=== PATIENT | female | born 1995 | race Caucasian/White ===

== ENCOUNTER 2020-11-08 16:56 | Emergency (ER) | payer OTHER, SELFPAY ==
[2020-11-08 17:15] VITALS: BP 142/83; PULSE 98; RESP 20; TEMP 37.2; O2SAT 100
--- NOTE | 2020-11-08 17:17 | ED.URI ---
HPI - URI/Sore Throat General Chief Complaint: Upper Respiratory Infection Stated Complaint: Possible Sinus Infection Time Seen by Provider: 11/08/20 17:17 Source: patient and RN notes reviewed History of Present Illness HPI Narrative: Patient is a 25-year-old female who presents the urgent care with complaints of a possible sinus infection. Patient states that for the last 3 days she has had some fullness in her bilateral ears and nasal/facial congestion. Patient states that she has been using her typical Claritin-D as well as another allergy medication without much relief. Patient denies of any known fevers, nausea, vomiting. Denies of any known exposure to strep Covid or influenza. States that she had a Covid test yesterday, which was negative. No other acute complaints. No acute distress noted. Patient aware of the plan of care. Some parts of this dictation were generated by voice recognition software and may contain typographical and/or grammatical inaccuracies. Related Data Home Medications Medication Instructions Recorded Confirmed fluticasone propion-salmeterol 1 inh INHALATION DAILY 11/08/20 11/08/20 [Advair Diskus] levothyroxine 137 mcg PO DAILY 11/08/20 11/08/20 montelukast 10 mg PO DAILY 11/08/20 11/08/20 norgestimate-ethinyl estradiol 1 tablet PO DAILY 11/08/20 11/08/20 [Tri Femynor] Allergies Allergy/AdvReac Type Severity Reaction Status Date / Time No Known Allergies Allergy Verified 11/08/20 17:27 Review of Systems Review of Systems: Narrative: CONSTITUTIONAL: Denies fever, chills, or sweats. EYES: Denies visual changes, redness, or discharge. ENT: Reports of nasal congestion, facial congestion, postnasal drainage and bilateral otalgia CARDIOVASCULAR: Denies chest pain, palpitations, or edema. RESPIRATORY: Denies cough or dyspnea. GASTROINTESTINAL: Denies abdominal pain, nausea, vomiting, or diarrhea. GENITOURINARY: Denies dysuria or hematuria. SKIN: Denies rash or itching. MUSCULOSKELETAL: Denies back pain, joint pain, or myalgia. NEUROLOGIC: Denies headache, numbness, or weakness. All other systems reviewed are negative, except as documented in HPI. PMFSH Comments At the time of my signature, I reviewed and agree with the nursing past medical, surgical, social, and family history. There is no relevant family history pertinent to the patient complaint. Exam Narrative: Exam Narrative: GENERAL: This is a well-nourished, well-developed patient, in no apparent distress. HEAD: normocephalic, atraumatic. Mild frontal sinus tenderness EYES: PERRL. Sclera clear/white. Vision is grossly intact. EARS: External ears normal, auditory canals clear and without drainage, TMs normal without perforation. Hearing grossly intact. NOSE: External nose normal with no obvious nasal discharge, mild bilateral erythemic nares with clear rhinorrhea THROAT: Mucous membranes moist, mild erythema noted posterior oropharynx with moderate postnasal drainage NECK: Neck supple, non-tender without lymphadenopathy CARDIOVASCULAR: Regular rate and rhythm without murmurs, gallops, or rubs. RESPIRATORY: Clear to auscultation. Breath sounds equal bilaterally. No wheezes, rales, or rhonchi. SKIN: warm, intact with no suspicious lesions or rash, good texture and turgor. NEURO: awake, alert, and oriented to person, place and time. There were no obvious focal neurologic abnormalities. EXTREMITIES: No clubbing, cyanosis, or edema. Course Vital Signs Vital signs: Vital Signs Temperature 99.0 F 11/08/20 17:15 Pulse Rate 98 11/08/20 17:15 Respiratory Rate 20 11/08/20 17:15 Blood Pressure 142/83 H 11/08/20 17:15 Pulse Oximetry 100 11/08/20 17:15 Temperature 99.0 F 11/08/20 17:15 Pulse Rate 98 11/08/20 17:15 Respiratory Rate 20 11/08/20 17:15 Blood Pressure 142/83 H 11/08/20 17:15 Pulse Oximetry 100 11/08/20 17:15 Reviewed-patient is informed that they may have pre-hypertension or hypertension based
== END 2020-11-08 17:30 | disposition home or self-care (01) ==
PROVIDERS: Emergency Provider Nurse Practitioner Family; PCP Family Medicine
DX: J32.9 Chronic sinusitis, unspecified (principal); J45.909 Unspecified asthma, uncomplicated; E06.3 Autoimmune thyroiditis; E03.9 Hypothyroidism, unspecified
CPT/HCPCS: 99213; G0463

== ENCOUNTER 2023-01-07 10:17 | Emergency (ER) | payer OTHER, SELFPAY ==
[2023-01-07 10:56] VITALS: BP 128/91; PULSE 91; RESP 16; TEMP 36.2; O2SAT 100
[2023-01-07 11:00] VITALS: BP 128/91; PULSE 91; RESP 16; TEMP 36.2; O2SAT 100
--- NOTE | 2023-01-07 11:31 | ED.FEMALEGU ---
HPI - Female Genitourinary General Chief complaint: Urogenital-Female Stated complaint: STD EXPOSURE Time Seen by Provider: 01/07/23 11:31 Source: patient, RN notes reviewed and old records reviewed Mode of arrival: ambulatory Limitations: no limitations History of Present Illness HPI Narrative: 27 year old female who presents to [facility] care with complaints of tenderness to perineal area and burning with urination for one week duration. Patient reports that she just got out of a 2 year relationship and found out he had been cheating on her and wants STD testing sent, patient denies any vaginal discharge or foul odor or any itching.Patient reports menses was 2 weeks ago. MD elicited complaint: dysuria Pertinent past history: other (concern for possible STD exposure) Onset (ago): week(s) (1) Location of symptoms: perineum Severity scale (1-10): 3 Quality of pain: burning Treatment prior to arrival: none Related Data Home Medications Medication Instructions Recorded Confirmed albuterol sulfate 90 mcg/actuation 2 puff inhalation Q4-6H PRN 11/08/20 01/07/23 aerosol inhaler Shortness Of Breath Or Wheezing fluticasone 100 mcg-salmeterol 50 1 inh inhalation BID 11/08/20 01/07/23 mcg/dose blistr powdr for inhalation (Advair Diskus) levothyroxine 137 mcg tablet 137 mcg PO DAILY 11/08/20 01/07/23 norgestimate-ethinyl estradiol 1 tablet PO DAILY 11/08/20 01/07/23 0.18 mg/0.215mg/0.25mg-35 mcg(28)tablet (Tri Femynor) fluticasone propionate 50 2 spray intranasal DAILY PRN 01/07/23 01/07/23 mcg/actuation nasal Congestion spray,suspension (Flonase Allergy Relief) metformin 500 mg tablet,extended 500 mg PO DAILY 01/07/23 01/07/23 release 24 hr phentermine 37.5 mg capsule 37.5 mg PO DAILY 01/07/23 01/07/23 Allergies Allergy/AdvReac Type Severity Reaction Status Date / Time No Known Allergies Allergy Verified 01/07/23 10:54 Review of Systems Review of Systems: CONSTITUTIONAL: Denies fever, chills, or sweats. CARDIOVASCULAR: Denies chest pain, palpitations, or edema. RESPIRATORY: Denies cough or dyspnea. GASTROINTESTINAL: Denies abdominal pain, nausea, vomiting, or diarrhea. GENITOURINARY: Reports dysuria, frequency, urgency. Denies flank pain or hematuria. SKIN: Denies rash or itching. MUSCULOSKELETAL: Denies back pain or myalgia. 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 There is no relevant family history pertinent to the presenting complaint Exam Narrative: GENERAL: Well-appearing, well-nourished, and in no acute distress. HEAD: Normocephalic, atraumatic. NECK: Supple. no lymphadenopathy CHEST: Clear to auscultation. No respiratory distress.SAO2 100% on room air HEART: Regular rate and rhythm. No murmur heard. Normal peripheral pulses. ABDOMEN: Soft, nontender, nondistended, normal active bowel sounds. No CVA tenderness, dysuria, tenderness perineum,denies any vaginal discharge EXTREMITIES: Normal range of motion. No edema. SKIN: Warm, dry, no rash. NEURO: No focal deficits. Alert and oriented x3. Course Course Emergency Course: Patient is aware of diagnosis, understands and agrees to
== END 2023-01-07 11:53 | disposition home or self-care (01) ==
PROVIDERS: Emergency Provider Registered Nurse
DX: R30.0 Dysuria (principal); Z11.3 Encounter for screening for infections with a predominantly sexual mode of transmission; J45.909 Unspecified asthma, uncomplicated; E03.9 Hypothyroidism, unspecified; E06.3 Autoimmune thyroiditis; E28.2 Polycystic ovarian syndrome
CPT/HCPCS: 81003; 87491; 87591; 87661; 99214; G0463

== ENCOUNTER 2024-03-08 14:33 | Emergency (ER) | payer OTHER, SELFPAY ==
[2024-03-08 14:40] VITALS: BP 114/86; PULSE 103; RESP 16; TEMP 36.8; O2SAT 96
--- NOTE | 2024-03-08 15:01 | ED.FEMALEGU ---
HPI - Female Genitourinary General Chief complaint: Urogenital-Female Stated complaint: poss std exposure Source: patient and RN notes reviewed Mode of arrival: ambulatory Limitations: no limitations History of Present Illness HPI Narrative: 29 y/o female presented for concern for possible STD exposure. States she was informed 2 days ago her last partner had been with multiple partners. Denies known STD. Denies any symptoms. Denies concern for , LMP 2 weeks ago. Related Data Home Medications Medication Instructions Recorded Confirmed albuterol sulfate 90 mcg/actuation 2 puff inhalation Q4-6H PRN 11/08/20 01/07/23 aerosol inhaler Shortness Of Breath Or Wheezing fluticasone 100 mcg-salmeterol 50 1 inh inhalation BID 11/08/20 01/07/23 mcg/dose blistr powdr for inhalation (Advair Diskus) levothyroxine 137 mcg tablet 137 mcg PO DAILY 11/08/20 01/07/23 norgestimate-ethinyl estradiol 1 tablet PO DAILY 11/08/20 01/07/23 0.18 mg/0.215mg/0.25mg-35 mcg(28)tablet (Tri Femynor) fluticasone propionate 50 2 spray intranasal DAILY PRN 01/07/23 01/07/23 mcg/actuation nasal Congestion spray,suspension (Flonase Allergy Relief) metformin 500 mg tablet,extended 500 mg PO DAILY 01/07/23 01/07/23 release 24 hr phentermine 37.5 mg capsule 37.5 mg PO DAILY 01/07/23 01/07/23 tirzepatide (weight loss) 5 mg/0.5 mg subcut 03/08/24 mL subcutaneous pen injector (Zepbound) Allergies Allergy/AdvReac Type Severity Reaction Status Date / Time No Known Allergies Allergy Verified 01/07/23 10:54 Review of Systems Review of Systems: CONSTITUTIONAL: Denies body aches, fever, chills, or sweats. CARDIOVASCULAR: Denies chest pain, palpitations, or edema. RESPIRATORY: Denies cough or dyspnea. GASTROINTESTINAL: Denies abdominal pain, nausea, vomiting, or diarrhea. GENITOURINARY: denies vaginal discharge, dysuria, frequency, urgency, hematuria, flank pain SKIN: Denies rash, itching, or wounds. MUSCULOSKELETAL: Denies back pain or myalgia. 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 Please see nursing chart for further information. There is no relevant family history pertinent to the presenting complaint Exam Narrative: GENERAL: Well-appearing ENT: Mucous membranes pink and moist. CHEST: No respiratory distress. Clear to auscultation. HEART: Regular rate and rhythm. ABDOMEN: Soft, nontender, nondistended, normal active bowel sounds. No CVA tenderness : normal vaginal introitus, pink without bleeding, laceration or lesions. Moderate thick white discharge. No swelling. Nontender. normal appearance of the cervix, closed Chaperoned by Anuja BRAMBILA SKIN: Warm, dry, no rash. NEURO: No focal deficits. Alert and oriented x3. Gait steady. PSYCH: Normal affect. Course Course Emergency Course: Patient is aware of diagnosis, understands and agrees to treatment plan. Anticipatory guidance given. Patient agrees to follow-up as directed and is aware of reasons to seek care at the emergency department. Portions of this record may have been created with voice recognition software Level of Care: Express Care Visit Vital Signs Vital signs: Vital Signs Temperature 98.2 F 03/08
[2024-03-08 15:34] LABS: BEDSIDEPREGUCG Negative (Negative)
[2024-03-08 17:29] LABS: Trichomonas Vag PCR NOT DETECTED (NOT DETECTE)
[2024-03-08 17:54] LABS: Chlamydia trachomatis NOT DETECTED (NOT DETECTE); Neisseria gonorrhoeae PCR NOT DETECTED (NOT DETECTE)
[2024-03-11 14:53] LABS: Bacterial Vaginosis POSITIVE (NEGATIVE)
== END 2024-03-08 15:32 | disposition home or self-care (01) ==
PROVIDERS: Emergency Provider Nurse Practitioner Family
DX: Z20.822 Contact with and (suspected) exposure to COVID-19 (principal); J45.909 Unspecified asthma, uncomplicated; E06.3 Autoimmune thyroiditis; E28.2 Polycystic ovarian syndrome
CPT/HCPCS: 81025; 81513; 87070; 87491; 87591; 87661; 99213; G0463

== ENCOUNTER 2024-08-19 10:02 | Emergency (ER) | payer OTHER, SELFPAY ==
[2024-08-19 10:07] VITALS: BP 122/85; PULSE 118; RESP 18; TEMP 36.7; O2SAT 100
--- OUTSIDE RECORDS SUMMARY | 2024-08-19 11:24 | XMS_ITS | Encounter Summary ---
Author Organization [facility] Address [address] [place] [address] Phone Care Team Providers Care Lead Electrical Engineer Name Role Phone Provider, None Primary Care Provider Unavailabl e Reason for Visit * Reason Comments Medication Refill Encounter Details Date Type Department Care Team (Late st Contact Info) Description 02/07/[address] [facility] - [facility] [address] [place] [address] Bro Jaime MD [address] [place] [address] Medication Refill Social History Tobacco Use Types Packs/Day Years Used Date Smoking Tobacco: Never Smokeless Tobacco: Never Alcohol Use Standard Drinks/Week Comments Not Currently 0 (1 standard drink = 0.6 oz pur e alcohol) AUDIT-C Answer Date Recorded Frequency of Alcohol Consumption Never 07/30/2018 Average Number of Drinks Not on file 019 Frequency of Binge Drinking Not on file 08/2018 PHQ-2 Answer Date Recorded PHQ-2 Score 0 2019 Sexually Active Control Partners Comments Not Currently Comments No Sex and Gender Information Value Date Recorded Sex Assigned at Not on file Legal Sex Female 2:20 PM CDT Gender Identity Not on file Sexual Orientation Not on file Occupation Industry Job Start Date Job End Date [employer] [place] Not on file Not on mateo e Not on file documented as of this encounter Plan of Treatment Not on file documented as of this encounter Visit Diagnoses Diagnosis Non morbid obesity due to excess calories documented in this encounter Additional Health Concerns Assessment Noted Time PHQ-9 Depression Total Score: 0 12/21/19 19 2:50 PM CDT documented as of this encounter Care Teams Lead Electrical Engineer Relationship Specialty Start Date End Date Provider, None [place] PCP - General 12/10/20 documented as of this encounter
--- OUTSIDE RECORDS SUMMARY | 2024-08-19 11:24 | XMS_ITS | Encounter Summary ---
Author Organization [facility] Address [address] [place] [address] Phone Care Team Providers Care Assistant Department Manager Name Role Phone Provider, None Primary Care Provider Unavailabl e Reason for Visit * Reason Comments Medication Refill Encounter Details Date Type Department Care Team (Late st Contact Info) Description 06/21/2021 Refill [facility] - [facility] [address] [place] [address] Bro Jaime MD [address] [place] [address] Medication Refill Social History Tobacco Use Types [...] Job Start Date Job End Date [employer] [place] Not on file Not on mateo e Not on file documented as of this encounter Plan of Treatment Not on file documented as of this encounter Visit Diagnoses Diagnosis Mild persistent asthma without complication Unspecified asthma documented in this encounter Additional Health Concerns Assessment Noted Time PHQ-9 Depression Total Score: 0 12/21/19 19 2:50 PM CDT documented as of this encounter Care Teams Assistant Department Manager Relationship Specialty Start Date End Date Provider, None [place] PCP - General 12/10/20 documented as of this encounter
--- OUTSIDE RECORDS SUMMARY | 2024-08-19 11:24 | XMS_ITS | Encounter Summary ---
Author Organization [facility] Address [address] [facility] [place] [address] Phone Care Team Providers Care In Flight Refueling Craftsman Name Role Phone Bro Jaime MD Primary Care Provider [phone] Provider, None Primary Care Provider Unavailabl e Reason for Visit * Reason Comments Medication Refill Encounter Details Date Type Department Care Team (Late st Contact Info) Description 04/02/2020 Refill [facility] [address] [place] [address] Bro Jaime MD [address] [place] [address] Medication Refill Social History Tobacco Use Types [...] Industry Job Start Date Job End Date [employer] [place] Not on file Not on mateo e Not on file documented as of this encounter Miscellaneous Notes * Telephone Encounter - Bro Jaime MD - 04/03/2020 4:45 PM CST I would love to dismiss her. NICS TEST TECHNICIAN * Telephone Encounter - Tyesha Richards RN - 04/03/2020 7:22 AM CST Patient has had 6 no shows just this year. Do you want to dismiss? NICS TEST TECHNICIAN * Telephone Encounter - Bro Jaime MD - 04/02/2020 6:31 PM CST Needs appointment before refills. Has no showed her last one. I said I want to see her in 3 months and she did not show up. She does this a lot and I m Not dealing with her. NICS TEST TECHNICIAN * Telephone Encounter - Jacque Shaw RN - 04/02/2020 4:24 PM CST Medication failed the protocol, provider to review and approve the medication order if appropriate. Last OV 12/06/19, F/U None, Earliest fill date 04/02/20 Jacque BRAMBILA Requested Prescriptions Pending Prescriptions Disp Refills Phentermine HCl 37.5 MG Capsule [Pharmacy Med Name: PHENTERMINE 37.5 MG CAPSULE] 30 Cap 2 Sig: TAKE ONE CAPSULE EVERY MORNING BEFORE BREAKFAST Not Delegated - Gastroenterology: Antiobesity Agents Failed - 04/02/2020 12:35 PM Failed - This refill cannot be delegated Passed - Valid encounter within last 6 months Past Office Visits Recent Outpatient Visits 3 months ago Mass of forearm, left [facility] - Family [facility] Bro Jamison MD 11 months ago Bilateral temporomandibular joint pain [facility] Medical [facility] - Family [facility] - Bro Jamison MD 1 year ago Mass of forearm, left [facility] - Bro Jamison MD 1 year ago Well woman exam (no gynecological exam) [facility] - Bro Jamison MD Upcoming Appointments COMMODITY SUPERVISOR - Recent and Past Visits Recent Visits Date Type Provider Dept 12/06/19 Office Visit Bro Jaime MD [facility] 04/17/19 Office Visit Bro Jaime MD [facility] Showing recent visits within past 460 days with a meds authorizing provider and meeting all other requirements Future Appointments No visits were found meeting these conditions. Showing future appointments within next 90 days with a meds authorizing provider and meeting all other requirements Passed - Last BP in normal range BP Readings from Last 1 Encounters: 12/06/19 124/80 NICS TEST TECHNICIAN documented in this encounter Plan of Treatment Not on file documented as of this encounter Visit Diagnoses Diagnosis Non morbid obesity due to excess calories documented in this encounter Additional Health Concerns Assessment Noted Time PHQ-9 Depression Total Score: 0 12/21/19 19 2:50 PM CDT documented as of this encounter Care Teams In Flight Refueling Craftsman Relationship Specialty Start Date End Date Bro Jaime MD PCP - General Family Medicine 07/30/18 09/21/20 Provider, None [place] PCP - General 12/10/20 documented as of this encounter
--- OUTSIDE RECORDS SUMMARY | 2024-08-19 11:24 | XMS_ITS | Clinical Summary ---
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 Do not swallow. 60 each 1 5 Active metFORMIN XR (GLUCOPHAGE XR) 500 mg 24 hr tabletIndications: PCOS (polycystic ovarian syndrome) Take 1 tablet (500 mg total) by mouth 2 (two) times a day after breakfast and dinner 180 tablet 3 5 07/08/19 26 Active tirzepatide, weight loss, (Zepbound) 7.5 mg/0.5 mL pen injectorIndication s:Weight Loss Management for Obese Patient (BMI >= 30) Inject 0.5 mL (7.5 mg total) under the skin every 7 days 2 mL 5 5 Active phentermine 37.5 mg capsuleIndications :Class 1 obesity due to excess calories with serious comorbidity and body mass index (BMI) of 34.0 to 34.9 in adult,Class 3 severe obesity due to excess calories with serious comorbidity and body mass index (BMI) of 40.0 to 44.9 in adult (HCC) Take 1 capsule (37.5 mg total) by mouth every morning 90 capsule 1 5 Active Active Problems Problem Noted Date Diagnosed Date Class 3 severe obesity due t o excess calories with serious comorbidity and body mass index (BMI) of 40.0 to 44.9 in adult 12/06/2023 Assessment & Plan (12/06/2023 2:19 PM CDT): Chronic, significant worsening Counseled on healthy lifestyle habits Advised to work on stress management Continue oral phentermine and add Zepbound 2.5 mg SQ weekly for 4 weeks than increase to 5 mg SQ weekly ( discussed about mechanism of action, side effects and benefits ) Obstruction of esophagus due to food impaction 0 01/29/2021 Overview (01/29/2021): Added automatically from request for surgery [id number] PCOS (polycystic ovarian syndrome) 01/08/2019 Assessment & Plan (12/06/2023 2:18 PM CDT): Counseled on diet and exercise Recommend to work on healthy weight loss Recommend to start taking oral metformin 1 tablet oral twice a day with meals Continue control pills Assessment & Plan (07/22/2022 10:49 AM REFUGE WORKER): Counseled on diet and exercise Recommend to work on healthy weight loss Continue oral metformin Advise to bet back on control pills, joaquin when pt using weight loss medications which are absolutely contraindicated with Assessment & Plan (12/07/2021 1:04 PM CDT): Counseled on diet and exercise Recommend to work on healthy weight loss Continue oral metformin Continue control pills Assessment & Plan (06/17/2021 5:07 PM REFUGE WORKER): Patient with symptomatic PCOS, with irregular periods, hirsutism, acne and obesity Patient has been off BCP Plan: The disease was reviewed with patient Patient to get back on BCP and follow up with OBgyn Patient to prevent and use protection till we get her thyroid under control Patient to work on weight loss with diet and exercise. Check labs this week and consider adding Metformin especially if Testosterone is high. Patient understands and agrees with above plan. Assessment & Plan (01/08/2019 11:29 AM CDT): Irregular menses - on OCP Female baldness hirsutism Obesity Acne High total testosterone levels Most likely pt has PCOS - strongly advised to workon healthy portion controlled diet, avoid processed foods and sugar from diet - increase physical activity, consider cross training - refer to see bilingual nanny - refer to see DELICATESSEN STORE MANAGER - discuss local measures for Hirsutism - like laser treatment , threading and waxing , avoid shaving Mass of forearm, left 01/06/2019 Well woman exam (no gynecological exam) 07/31/19 Female pattern hair loss 07/30/2018 Primary insomnia 07/30/2018 Asthma, mild persistent 07/30/2018 Encounter for surveillance of contraceptive pill s 03/16/2018 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 Assessment & Plan (12/06/2023 2:17 PM CDT): Chronic, unknown status Patient currently on levothyroxine 137 mcg oral daily Recheck thyroid function test today and further plans based on it Assessment & Plan (12/07/2021 1:08 PM CDT): Continue current dose of levothyroxine therapy Recheck thyroid function test and further plans based on it Reviewed thyroid function tests, within normal limits Continue current dose Assessment & Plan (01/08/2019 11:25 AM CDT): Advised to continue taking Levothyroxine 137 mcg oral daily - recheck TSH today - further dose adjustments based on labs from today Instructions for taking levothyroxine Brand name is preferred Take thyroid pill all by itself Take thyroid pill one hour before food or 2 to 3 hours after food Heat, humidity, and direct sunlight will cause a loss of potency Never store thyroid pill in the bathroom The medication should be taken daily. If one or more pills are missing in a week, they can be taken all together at once, making sure at the end of the week, 7 tabs have been taken. Assessment & Plan (03/16/2018 10:12 AM CDT): Advised to continue taking Levothyroxine 137 mcg oral daily - recheck TSH today - further dose adjustments based on labs from today Instructions for taking levothyroxine Brand name is preferred Take thyroid pill all by itself Take thyroid pill one hour before food or 2 to 3 hours after food Heat, humidity, and direct sunlight will cause a loss of potency Never store thyroid pill in the bathroom The medication should be taken daily. If one or more pills are missing in a week, they can be taken all together at once, making sure at the end of the week, 7 tabs have been taken. Assessment & Plan (04/04/2017 2:26 PM REFUGE WORKER): Advised to continue taking Levothyroxine 137 mcg oral daily - recheck TSH today - performed thyroid U/s on clinic today , as pt. C/o increased in neck size - no significant changes in thyroid gland sizes when compared to 11/2016 - pt. TSH from today - TSH is 3.74, WNL Advised to continue current levothyroxine dose - follow up in 6 months Instructions for taking levothyroxine Brand name is preferred Take thyroid pill all by itself Take thyroid pill one hour before food or 2 to 3 hours after food Heat, humidity, and direct sunlight will cause a loss of potency Never store thyroid pill in the bathroom The medication should be taken daily. If one or more pills are missing in a week, they can be taken all together at once, making sure at the end of the week, 7 tabs have been taken. 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 If one or more pills are missing in a week, they can be taken all together at once, making sure at the end of the week, 7 tabs have been taken. Assessment & Plan (07/22/2022 10:49 AM REFUGE WORKER): Continue current dose of levothyroxine therapy Recheck thyroid function test and further plans based on it Assessment & Plan (06/17/2021 5:04 PM REFUGE WORKER): Patient has been off Levothyroxine for > 4 weeks due to insurance problems. No recent thyroid labs. Patient has thyromegaly, but no nodules on Ultrasound in 2017. Plan: Restart same dose of Levothyroxine 137 mcg/day The proper way of taking Levothyroxine reviewed with patient. Check TSH this week and also in 2 month. Acquired hypothyroidism 12/23/2016 Assessment & Plan (12/23/2016 11:19 AM CDT): - Thyroid Ultrasound performed in office today - showed changes of summer thyroiditis in both lobes - labs today - TSH, TPO ab - will call with test results - continue same dose of Levothyroxine 137 mcg oral daily Instructions for taking levothyroxine Brand name is preferred Take thyroid pill all by itself Take thyroid pill one hour before food or 2 to 3 hours after food Heat, humidity, and direct sunlight will cause a loss of potency Never store thyroid pill in the bathroom The medication should be taken daily. If one or more pills are missing in a week, they can be taken all together at once, making sure at the end of the week, 7 tabs have been taken. Mild intermittent asthma without complication Assessment & Plan (07/22/2022 10:51 AM REFUGE WORKER): Refilled advair Advise to establish PCP Class 1 obesity due to exces s calories with serious comorbidity and body mass index (BMI) of 34.0 to 34.9 in adult 12/23/2016 Assessment & Plan (07/22/2022 10:51 AM REFUGE WORKER): Chronic, slowly improving but still above goal BMI 36.4 Counseled on diet and exercise Patient doing intermittent fasting Advised to include HIIT Exercises - patient on oral phentermine - add topiramate - advised to look over the side effects on the medications and advised to notify if patient not tolerating Also advised patient that these medications are strict contraindication for and she has to get back on her control pills - follow up in 3 months Assessment & Plan (12/07/2021 1:04 PM CDT): Chronic, worsening Discussed about healthy lifestyle habits advise to work on healthy diet, avoid processed foods , increase vegetables and protein and cut back on carb portions and also avoid fruit juices and regular soda and desserts Increase physical activity , recommend at least 150 min of aerobic activity per week and include resistance training 2 x weekly Start phentermine therapy Assessment & Plan (01/08/2019 11:30 AM CDT): Chronic, worsening - strongly advised to workon healthy portion controlled diet, avoid processed foods and sugar from diet - increase physical activity, consider cross training - start Phentermine 37.5 mg oral daily - bilingual nanny referral - follow up in 3 months Assessment & Plan (03/16/2018 10:12 AM CDT): Obesity is improving with lifestyle modifications. Discussed the patient's BMI. The BMI is above average; BMI management plan is completed. General weight loss/lifestyle modification strategies discussed (elicit support from others; identify saboteurs; non-food rewards, etc). Behavioral treatment: stress management. Diet interventions: moderate (500 kCal/d) deficit diet. Informal exercise measures discussed, e.g. taking stairs instead of elevator. Regular aerobic exercise program discussed. Assessment & Plan (04/04/2017 2:28 PM REFUGE WORKER): Obesity is worsening. Discussed the patient's BMI. The BMI is above average; BMI management plan is completed. General weight loss/lifestyle modification strategies discussed (elicit support from others; identify saboteurs; non-food rewards, etc). Behavioral treatment: stress management. Diet interventions: moderate (500 kCal/d) deficit diet. Informal exercise measures discussed, e.g. taking stairs instead of elevator. Regular aerobic exercise program discussed. - advise to see bilingual nanny soon - bilingual nanny referral done - advise to do food diary for 2 weeks before seeing bilingual nanny - advise to exercise 6 days of week and increase intensity of the exercise - advise to avoid binge eating - advise to include resistance training - follow up in 6 months Assessment & Plan (12/23/2016 11:17 AM CDT): Obesity is newly identified. Discussed the patient's BMI. The BMI is above average; BMI management plan is completed. General weight loss/lifestyle modification strategies discussed (elicit support from others; identify saboteurs; non-food rewards, etc). Behavioral treatment: stress management. Diet interventions: moderate (500 kCal/d) deficit diet. Informal exercise measures discussed, e.g. taking stairs instead of elevator. Regular aerobic exercise program discussed. 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 (Primary Dx) 07/08/2024 10:43 AM REFUGE WORKER - 07/08/2024 11:59 PM REFUGE WORKER Hospital Encounter [address] [address] 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 Discharge Disposition: Discharge to home or self care 07/08/2024 10:15 AM REFUGE WORKER Office Visit [facility] Diabetes and Endocrinology [address] [place] [phone] Seth Gar MD Class 1 obesity due to excess calories with serious comorbidity and body mass index (BMI) of 34.0 to 34.9 in adult (Primary Dx); PCOS (polycystic ovarian syndrome); 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; Class 3 severe obesity due to excess calories with serious comorbidity and body mass index (BMI) of 40.0 to 44.9 in adult (HCC) 06/05/2024 Telephone [facility] [id number] [place] [address] [address] [address] Seth Gar MD from Last 3 Months Surgical History Surgery Date Site/Laterality Comments NOSE SURGERY Medical History Medical History Date Comments Thyroid disease Asthma Summer's disease PCOS (polycystic ovarian syndrome) Family History Medical History Relation Name Comments Thyroid cancer Mother Relation Name Status Comments Mother Social History Tobacco Use Types Packs/Day Years Used Date Smoking Tobacco: Never Smokeless Tobacco: Never Tobacco Cessation:Counseling Given: Not Answered Alcohol Use Standard Drinks/Week Comments Yes 0 (1 standard drink = 0.6 oz pur e alcohol) PHQ-2 Answer Date Recorded PHQ-2 Total Score (If total score is 3 or more points, staff should administer the PHQ-9) 0 12/06/2023 Personal Safety Answer Date Recorded Have you ever been in or are you currently in a harmful physical or emotional relationship or is someone making you feel afraid or unsafe? Denies 04/02/2023 Comments No Sex and Gender Information Value Date Recorded Sex Assigned at Not on file Legal Sex Female 12:36 PM CDT Gender Identity Not on file Sexual Orientation Not on file Obstetrics History Last Filed Vital Signs Vital Sign Reading Time Taken Comments Blood Pressure 122/70 07/08/2024 10:24 AM REFUGE WORKER Pulse 96 07/08/2024 10:24 AM REFUGE WORKER Temperature 37.2 C (99 F) 04/02/2023 11:34 AM REFUGE WORKER Respiratory Rate 15 07/08/2024 10:24 AM REFUGE WORKER Oxygen Saturation 100% 04/02/2023 1:51 PM REFUGE WORKER Inhaled Oxygen Concentration - - Weight 97.1 kg (214 lb) 07/08/2024 10:24 AM REFUGE WORKER Height 167.6 cm (5' 6 ) 07/08/2024 10:24 AM REFUGE WORKER Body Mass Index 34.54 07/08/2024 10:24 AM REFUGE WORKER Plan of Treatment Health Maintenance Due Date Last Done Comments Cervical Cancer Screening 1995 Hepatitis C Screening 1995 Varicella Vaccines (1 of 2 - 13+ 2-dose series) 01/28/2008 Hepatitis B Screening 2013 Regular Well Visit/Exam 18-64 2013 Pneumococcal vaccine <65 (1 of 2 - PCV) 2014 DTaP/Tdap/Td Vaccine (2 - Td or Tdap) 01/03/2024 01/02/2014 Influenza Vaccine (#1) 2024 05/08/2020, 2010 Depression Screening 12/05/2024 12/06/2023, 07/22/2022, 01/08/2019, Additional history exists HPV Vaccines Completed 05/12/2012, 11/26, 03/28/2011 Procedures Procedure Name Priority Date/Time Associated Diagnosis Comments THYROID FUNCTION CASCADE Routine 07/08/2024 10:43 AM REFUGE WORKER 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 from Last 3 Months Results * Thyroid Function [place] (07/08/2024 10:43 AM REFUGE WORKER) TSH 0.46 0.30 - 4.20 mcIUnit/mL Blood 07/08/2024 10:4 3 AM REFUGE WORKER 07/08/2024 7:39 PM REFUGE WORKER Seth Godoy MD LAB BLOOD ORDERABLE S Final Result [facility] [id number] [address] Department [place] [address] from Last 3 Months [facility] Advance Directives For more information, please contact: [phone] * Full Code (Latest Code Status on File) Date Activated Date Inactivated Comments 01/29/2021 10:05 AM 01/29/2021 3:41 PM Care Teams Engraver Picture Relationship Specialty Start Date End Date No, Physician PCP - General 04/02/23
--- OUTSIDE RECORDS SUMMARY | 2024-08-19 11:24 | XMS_ITS | Encounter Summary ---
Author Organization [facility] Address [address] [facility] [place] [address] Phone Care Team Providers Care Explosives Operator Name Role Phone Bro Jaime MD Primary Care Provider [phone] Provider, None Primary Care Provider Unavailabl e Reason for Visit * Reason Comments Medication Refill Encounter Details Date Type Department Care Team (Late st Contact Info) Description 03/07/2020 Refill [facility] - Family Medicine [facility] [address] [place] [address] Bro Jaime MD [address] [place] [address] Medication Refill Social History Tobacco Use Types [...] Industry Job Start Date Job End Date [employer] [facility] [place] Not on file Not on mateo e Not on file documented as of this encounter Miscellaneous Notes * Telephone Encounter - Darlene Bush RN - 03/09/2020 12:36 PM CDT [place]: 12-06-2019 Next OV: none documented in this encounter Plan of Treatment Not on file documented as of this encounter Visit Diagnoses Not on filedocumented in this encounter Additional Health Concerns Assessment Noted Time PHQ-9 Depression Total Score: 0 12/21/19 19 2:50 PM CDT documented as of this encounter Care Teams Explosives Operator Relationship Specialty Start Date End Date Bro Jaime MD PCP - General Family Medicine 07/30/18 09/21/20 Provider, None [place] PCP - General 12/10/20 documented as of this encounter
--- OUTSIDE RECORDS SUMMARY | 2024-08-19 11:24 | XMS_ITS | Encounter Summary ---
Author Organization [facility] Address [address] [facility] [place] [address] Phone Care Team Providers Care Educational Therapist Name Role Phone Bro Jaime MD Primary Care Provider [phone] Provider, None Primary Care Provider Unavailabl e Reason for Visit * Reason Comments Medication Refill Encounter Details Date Type Department Care Team (Late st Contact Info) Description 09/13/2020 Refill [facility] [address] [place] [address] Bro Jaime MD [address] [place] [address] Medication Refill Social History Tobacco Use Types [...] Job Start Date Job End Date [employer] [place] Not on file Not on mateo e Not on file COVID-19 Exposure Response Date Recorded In the last month, have you been in contact with someone who was confirmed or suspected to have Coronavirus / COVID-19? No / Unsure 09/15/2020 8:38 AM CDT documented as of this encounter Miscellaneous Notes * Telephone Encounter - Elena Thomas RN - 09/16/2020 11:38 AM CDT Patient has appointment with you tomorrow, 09/17/20. * Telephone Encounter - Della Botello - 09/16/2020 10:36 AM CDT Patient has an appointment with Dr. Jaime on 09/17/2020. * Telephone Encounter - Tyesha Richards RN - 09/14/2020 2:38 PM CDT Needs appt documented in this encounter Plan of Treatment Not on file documented as of this encounter Visit Diagnoses Diagnosis Non morbid obesity due to excess calories documented in this encounter Additional Health Concerns Assessment Noted Time PHQ-9 Depression Total Score: 0 12/21/19 2:50 PM CDT documented as of this encounter Care Teams Educational Therapist Relationship Specialty Start Date End Date Bro Jaime MD PCP - General Family Medicine 07/30/18 09/21/20 Provider, None [place] PCP - General 12/10/20 documented as of this encounter
--- OUTSIDE RECORDS SUMMARY | 2024-08-19 11:24 | XMS_ITS | Encounter Summary ---
Author Organization [facility] Address [address] [place] [address] Phone Care Team Providers Care Luggage Repairer Name Role Phone Provider, None Primary Care Provider Unavailabl e Reason for Visit * Reason Comments Medication Refill Encounter Details Date Type Department Care Team (Late st Contact Info) Description 04/15/2022 Refill [facility] - Family Medicine [facility] [address] [place] [address] Bro Jaime MD [address] [place] [address] Medication Refill Social History Tobacco Use Types [...] Job Start Date Job End Date [employer] in [place] Not on file Not on mateo e Not on file documented as of this encounter Plan of Treatment Not on file documented as of this encounter Visit Diagnoses Diagnosis Mild persistent asthma without complication Unspecified asthma documented in this encounter Additional Health Concerns Assessment Noted Time PHQ-9 Depression Total Score: 0 12/21/19 19 2:50 PM CDT documented as of this encounter Care Teams Luggage Repairer Relationship Specialty Start Date End Date Provider, None [place] PCP - General 12/10/20 documented as of this encounter
--- OUTSIDE RECORDS SUMMARY | 2024-08-19 11:24 | XMS_ITS | Referral Summary ---
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 Discharge Disposition: Discharge to home or self care 07/08/2024 10:45 AM GAUNTLET PAIRER Lab [facility] Outpatient Lab at [address] [phone] 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 (Primary Dx) 07/08/2024 10:15 AM GAUNTLET PAIRER Office Visit [facility] Diabetes and Endocrinology [address] [place] [phone] Seth Gar MD Class 1 obesity due to excess calories with serious comorbidity and body mass index (BMI) of 34.0 to 34.9 in adult (Primary Dx); PCOS (polycystic ovarian syndrome); 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; Class 3 severe obesity due to excess calories with serious comorbidity and body mass index (BMI) of 40.0 to 44.9 in adult (HCC) 06/05/2024 Telephone [facility] Specialists [address] [address] Walt Godoy, Seth Godoy MD from Last 3 Months Allergies No known active allergies Medications norgestimate-ethin yl estradioL (Tri Femynor) 0.18/0.215/0.25 mg-35 mcg (28) per tabletIndications: PCOS (polycystic ovarian syndrome),Encounte r for surveillance of contraceptive pills Take 1 tablet by mouth daily 28 tablet 12 3 Active levothyroxine (SYNTHROID) 137 mcg tabletIndications: 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 Do not swallow. 60 each 5 Active metFORMIN XR (GLUCOPHAGE XR) 500 [...] (01/29/2021): Added automatically from request for surgery [id number] PCOS (polycystic ovarian syndrome) 01/08/2019 Assessment & Plan (12/06/2023 2:18 PM CDT): Counseled on diet and exercise Recommend to work on healthy weight loss Recommend to start taking oral metformin 1 tablet oral twice a day with meals Continue control pills Assessment & Plan (07/22/2022 10:49 AM GAUNTLET PAIRER): Counseled on diet and exercise Recommend to [...] pills Assessment & Plan (06/17/2021 5:07 PM GAUNTLET PAIRER): Patient with symptomatic PCOS, with irregular periods, [...] consider cross training - refer to see environmental restoration planner - refer to see DELIVERY MGR - discuss local measures for Hirsutism - [...] taken. Assessment & Plan (04/04/2017 2:26 PM GAUNTLET PAIRER): Advised to continue taking Levothyroxine 137 mcg [...] taken. Assessment & Plan (07/22/2022 10:49 AM GAUNTLET PAIRER): Continue current dose of levothyroxine therapy Recheck thyroid function test and further plans based on it Assessment & Plan (06/17/2021 5:04 PM GAUNTLET PAIRER): Patient has been off Levothyroxine for > [...] complication Assessment & Plan (07/22/2022 10:51 AM GAUNTLET PAIRER): Refilled advair Advise to establish PCP Class 1 obesity due to exces s calories with serious comorbidity and body mass index (BMI) of 34.0 to 34.9 in adult 12/23/2016 Assessment & Plan (07/22/2022 10:51 AM GAUNTLET PAIRER): Chronic, slowly improving but still above goal [...] start Phentermine 37.5 mg oral daily - environmental restoration planner referral - follow up in 3 months [...] discussed. Assessment & Plan (04/04/2017 2:28 PM GAUNTLET PAIRER): Obesity is worsening. Discussed the patient's BMI. The BMI is above average; BMI management plan is completed. General weight loss/lifestyle modification strategies discussed (elicit support from others; identify saboteurs; non-food rewards, etc). Behavioral treatment: stress management. Diet interventions: moderate (500 kCal/d) deficit diet. Informal exercise measures discussed, e.g. taking stairs instead of elevator. Regular aerobic exercise program discussed. - advise to see environmental restoration planner soon - environmental restoration planner referral done - advise to do food diary for 2 weeks before seeing environmental restoration planner - advise to exercise 6 days of [...] surveillance 02/04/2016 Abnormal thyroid function test 12/07/2015 Social History Tobacco Use Types Packs/Day Years [...] on file Sexual Orientation Not on file Last Filed Vital Signs Vital Sign Reading Time Taken Comments Blood Pressure 122/70 07/08/2024 10:24 AM GAUNTLET PAIRER Pulse 96 07/08/2024 10:24 AM GAUNTLET PAIRER Temperature 37.2 C (99 F) 04/02/2023 11:34 AM GAUNTLET PAIRER Respiratory Rate 15 07/08/2024 10:24 AM GAUNTLET PAIRER Oxygen Saturation 100% 04/02/2023 1:51 PM GAUNTLET PAIRER Inhaled Oxygen Concentration - - Weight 97.1 kg (214 lb) 07/08/2024 10:24 AM GAUNTLET PAIRER Height 167.6 cm (5' 6 ) 07/08/2024 10:24 AM GAUNTLET PAIRER Body Mass Index 34.54 07/08/2024 10:24 AM GAUNTLET PAIRER Plan of Treatment Not on file Procedures Procedure Name Priority Date/Time Associated Diagnosis Comments THYROID FUNCTION CASCADE Routine 07/08/2024 10:43 AM GAUNTLET PAIRER 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 Advance Directives For more information, please contact: [phone] * Full Code (Latest Code Status on File) Date Activated Date Inactivated Comments 01/29/2021 10:05 AM 01/29/2021 3:41 PM Care Teams Director Credit Risk Relationship Specialty Start Date End Date No, Physician PCP - General 04/02/23
--- OUTSIDE RECORDS SUMMARY | 2024-08-19 11:24 | XMS_ITS | Encounter Summary ---
Author Organization [facility] Address [address] [facility] [place] [address] Phone Care Team Providers Care Lockstitch Waistline Joiner Name Role Phone Bro Jaime MD Primary Care Provider Provider, None Primary Care Provider Unavailabl e Reason for Visit * Reason Comments Medication Refill Encounter Details Date Type Department Care Team (Late st Contact Info) Description 08/30/2020 Refill [facility] - [facility] [address] [place] [address] Bro Jaime MD [address] [place] [address] Medication Refill Social History Tobacco Use Types [...] Job Start Date Job End Date [employer] [place] Not on file Not on mateo e Not on file COVID-19 Exposure Response Date Recorded In the last month, have you been in contact with someone who was confirmed or suspected to have Coronavirus / COVID-19? No / Unsure 08/05/2020 11:02 AM TRANSITION MANAGER documented as of this encounter Miscellaneous Notes * Telephone Encounter - Kailee Medrano - 09/01/2020 3:51 PM CDT Called patient, left voicemail. * Telephone Encounter - Elena Thomas RN - 09/01/2020 11:28 AM CDT Patient needs appointment per Dr Jaime * Telephone Encounter - Bro Jaime MD - 08/31/2020 5:06 PM CDT I asked her to follow up in one month to check if this was helping and if her bp and pulse were ok.She no showed that visit. I am not allowing her to do what she wants. This is important. * Telephone Encounter - Any Baugh RN - 08/31/2020 3:42 PM CDT Last Fill date 07/22/2020 Medication failed the protocol, provider to review and approve the medication order if appropriate. Requested Prescriptions Pending Prescriptions Disp Refills Phentermine HCl 37.5 MG Capsule [Pharmacy Med Name: PHENTERMINE 37.5 MG CAPSULE] 30 Capsule 2 Sig: TAKE ONE CAPSULE EVERY MORNING BEFORE BREAKFAST Not Delegated - Gastroenterology: Antiobesity Agents Failed - 08/31/2020 3:39 PM Failed - This refill cannot be delegated Passed - Valid encounter within last 6 months Past Office Visits Recent Outpatient Visits 3 months ago Mild persistent asthma without complication [facility] - Family Medicine - Bro Jamison MD 8 months ago [facility], [facility] Bilateral temporomandibular joint pain [facility] Bro Jamison MD 1 year ago [facility], [facility] 2 years ago Well woman exam (no gynecological exam) [facility] Upcoming Appointments Future Appointments In 2 months Bro Jaime MD [facility] Recent and Past Visits Recent Visits Date Type Provider Dept 05/08/20 Office Visit Bro Jaime MD [facility] 12/06/19 Office Visit [facility] Showing recent visits within past 460 days with a meds authorizing provider and meeting all other requirements Future Appointments Date Type Provider Dept 11/06/20 Appointment Bro Jaime MD [facility] Showing future appointments within next 90 days with a meds authorizing provider and meeting all other requirements Passed - Last BP in normal range BP Readings from Last 1 Encounters: 05/08/20 118/68 documented in this encounter Plan of Treatment Not on file documented as of this encounter Visit Diagnoses Diagnosis Non morbid obesity due to excess calories documented in this encounter Additional Health Concerns Assessment Noted Time PHQ-9 Depression Total Score: 0 12/21/19 19 2:50 PM CDT documented as of this encounter Care Teams Lockstitch Waistline Joiner Relationship Specialty Start Date End Date Bro Jaime MD PCP - General Family Medicine 07/30/18 09/21/20 Provider, None [place] PCP - General 12/10/20 documented as of this encounter
--- OUTSIDE RECORDS SUMMARY | 2024-08-19 11:24 | XMS_ITS | Clinical Summary ---
Author Organization [facility] Address [address] [place] [address] Phone Care Team Providers Care Director Of Religious Activities Name Role Phone Provider, None Primary Care Provider Unavailabl e Allergies No known active allergies Medications levothyroxine (SYNTHROID) 137 MCG TabletIndications: Acquired hypothyroidism Take 1 Tab by mouth daily. 90 Tab 3 0 Active Tri Femynor 0.18/0.215/0.25 MG-35 MCG TabletIndications: Heavy Menstrual Bleeding Take 1 Tablet by mouth daily. Indications: Excessive Amount of Menstrual Volume 28 Tablet 10 1 Active fluticasone-salmet paul (Advair Diskus) 100-50 MCG/DOSE AEROSOL POWDER, BREATH ACTIVATEDIndicatio ns:Asthma take 1 Puff by inhalation 2 times daily. Indications: Asthma 3 Each 3 1 Active albuterol 108 (90 Base) MCG/ACT Aerosol SolutionIndication s:Mild persistent asthma without complication take 2 Puffs by inhalation every 4 hours as needed for Wheezing. 8.5 g 1 1 Active montelukast (SINGULAIR) 10 MG TabletIndications: Eustachian tube disorder, bilateral Take 1 Tablet by mouth daily. 90 Tablet 3 1 Active Phentermine HCl 37.5 MG CapsuleIndications :Non morbid obesity due to excess calories Take one capsule every morning before breakfast. 30 Capsule 2 1 Active traZODone (DESYREL) 100 MG TabletIndications: Primary insomnia Take 1 Tablet by mouth nightly. 90 Tablet 3 1 Active Active Problems Problem Noted Date Diagnosed Date PCOS (polycystic ovarian syndrome) 01/08/2019 Overview (04/17/2019): Last Assessment & Plan: Irregular menses - on OCP Female baldness hirsutism Obesity Acne High total testosterone levels Most likely pt has PCOS - strongly advised to workon healthy portion controlled diet, avoid processed foods and sugar from diet - increase physical activity, consider cross training - refer to see consultant in ergonomics and safety - refer to see OPENER VERIFIER PACKER CUSTOMS - discuss local measures for Hirsutism - like laser treatment , threading and waxing , avoid shaving Mass of forearm, left 01/06/2019 Asthma, mild persistent 07/30/2018 Primary insomnia 07/30/2018 Acquired hypothyroidism 12/23/2016 Overview (07/30/2018): Last Assessment & Plan: - Thyroid Ultrasound performed in office today [...] the week, 7 tabs have been taken. Non morbid obesity due to excess calories 2016 Overview (07/30/2018): Last Assessment & Plan: Obesity is improving with lifestyle modifications. Discussed the patient's BMI. The BMI is above average; BMI management plan is completed. General weight loss/lifestyle modification strategies discussed (elicit support from others; identify saboteurs; non-food rewards, etc). Behavioral treatment: stress management. Diet interventions: moderate (500 kCal/d) deficit diet. Informal exercise measures discussed, e.g. taking stairs instead of elevator. Regular aerobic exercise program discussed. 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 Obesity (BMI 35.0-39.9 without comorbidity) 12/23/2016 09/17/2020 Mild intermittent asthma without complication 12/24/19 17 09/17/2020 Immunizations Immunization Administration Dates Next Due Hpv, Unspecified Formulation 05/12/2012,12/15/19 12,03/28/2011 Influenza Vaccine 03/28/2011 Influenza Vaccine, Quadrivalent, PF 05/08/2020 Meningococcal Vaccine 01/02/2014 TDAP Vaccine 01/02/2014 Family History Medical History Relation Name Comments Anxiety disorder Father Cancer Mother Thyroid Disease Mother No Known Problems Sister 1 No Known Problems Sister 2 Relation Name Status Comments Father Alive Mother Alive hashimotos, and thyroid cancer Sister 1 Alive Sister 2 Alive Social History Tobacco Use Types Packs/Day Years Used Date Smoking Tobacco: Never Smokeless Tobacco: Never Tobacco Cessation:Counseling Given: Yes Alcohol Use Standard Drinks/Week Comments Not Currently [...] Job Start Date Job End Date [employer] in [place] Not on file Not on mateo e Not on file Last Filed Vital Signs Vital Sign Reading Time Taken Comments Blood Pressure 100/62 09/17/2020 4:09 PM CDT Pulse 87 09/17/2020 4:09 PM CDT Temperature 36.9 C (98.4 F) 09/17/2020 4:09 PM CDT Respiratory Rate 16 09/17/2020 4:09 PM CDT Oxygen Saturation 99% 09/17/2020 4:09 PM CDT Inhaled Oxygen Concentration - - Weight 89 kg (196 lb 3.2 oz) 09/17/2020 4:09 PM CDT Height 167.6 cm (5' 6 ) 09/17/2020 4:09 PM CDT Body Mass Index 31.67 09/17/2020 4:09 PM CDT Plan of Treatment Health Maintenance Due Date Last Done Comments Hepatitis C Virus (HCV) Screening 1995 Hepatitis B Immunization (1 of 3 - 19+ 3-dose series) 2014 Pneumococcal Immunization Combined (1 of 2 - PCV) 2014 Influenza Immunization (#1) 01/28/202404/28, 03/28/2011 SARS-COV-2 Immunization (3 - 2023- season) 2024 03/08/2021, 02/06/2021 Respiratory Syncytial Virus (RSV) Immunization (Adult) (1 - 1-dose 75+ series) 2070 Human Papillomavirus (HPV) Immunization Discontinued 05/12/2012, 12/15/2011, 03/28/2011 DTaP/Tdap/Td Immunization Discontinued 01/02/2014 Meningococcal Immunization (ACWY) Completed 01/02/2014 Rotavirus Immunization Aged Out No lo nger eligible based on patient's age to complete this topic Insurance [facility] OAP Care Teams Director Of Religious Activities Relationship Specialty Start Date End Date Provider, None [place] PCP - General 12/10/20
--- OUTSIDE RECORDS SUMMARY | 2024-08-19 11:24 | XMS_ITS | Encounter Summary ---
Author Organization [facility] Address [address] [place] [address] Phone Care Team Providers Care Stock Sheets Cleaner Inspector Name Role Phone Provider, None Primary Care Provider Unavailabl e Reason for Visit * Reason Comments Medication Refill Encounter Details Date Type Department Care Team (Late st Contact Info) Description 06/02/2021 Refill [facility] - Family Medicine [facility] [address] [place] [address] Bro Jaime MD [address] [place] [address] Medication Refill Social History Tobacco Use Types [...] Date Job End Date [employer] longterm in [place] Not on file Not on mateo e Not on file documented as of this encounter Plan of Treatment Not on file documented as of this encounter Visit Diagnoses Diagnosis Non morbid obesity due to excess calories documented in this encounter Additional Health Concerns Assessment Noted Time PHQ-9 Depression Total Score: 0 12/21/19 19 2:50 PM CDT documented as of this encounter Care Teams Stock Sheets Cleaner Inspector Relationship Specialty Start Date End Date Provider, None [place] PCP - General 12/10/20 documented as of this encounter
--- OUTSIDE RECORDS SUMMARY | 2024-08-19 11:24 | XMS_ITS | Encounter Summary ---
Author Organization [facility] Address [address] [place] [address] Phone Care Team Providers Care Communications And Signals Supervisor Name Role Phone Provider, None Primary Care Provider Unavailabl e Reason for Visit * Reason Comments Medication Refill Encounter Details Date Type Department Care Team (Late st Contact Info) Description 11/26/2021 Refill [facility] - Family Medicine [facility] [address] [place] [address] Bro Jaime MD [address] [place] [address] Medication Refill Social History Tobacco Use Types [...] Job Start Date Job End Date [employer] [facility] [place] Not on file Not on mateo e Not on file documented as of this encounter Plan of Treatment Not on file documented as of this encounter Visit Diagnoses Diagnosis Mild persistent asthma without complication Unspecified asthma documented in this encounter Additional Health Concerns Assessment Noted Time PHQ-9 Depression Total Score: 0 12/21/19 19 2:50 PM CDT documented as of this encounter Care Teams Communications And Signals Supervisor Relationship Specialty Start Date End Date Provider, None [place] PCP - General 12/10/20 documented as of this encounter
--- OUTSIDE RECORDS SUMMARY | 2024-08-19 11:24 | XMS_ITS | Encounter Summary ---
Author Organization [facility] Address [address] [place] [address] Phone Care Team Providers Care Fabrication Mig Welder Name Role Phone Provider, None Primary Care Provider Unavailabl e Reason for Visit * Reason Comments Medication Refill Encounter Details Date Type Department Care Team (Late st Contact Info) Description 11/23/2020 Refill [facility] [address] [place] [address] Bro Jaime MD [address] [place] [address] Medication Refill Social History Tobacco Use Types [...] Date Job End Date [employer] longterm in [place] Not on file Not on mateo e Not on file documented as of this encounter Plan of Treatment Not on file documented as of this encounter Visit Diagnoses Not on filedocumented in this encounter Additional Health Concerns Assessment Noted Time PHQ-9 Depression Total Score: 0 12/21/19 19 2:50 PM CDT documented as of this encounter Care Teams Fabrication Mig Welder Relationship Specialty Start Date End Date Provider, None [place] PCP - General 12/10/20 documented as of this encounter
--- OUTSIDE RECORDS SUMMARY | 2024-08-19 11:24 | XMS_ITS | Encounter Summary ---
Author Organization [facility] Address [address] [place] [address] Phone Care Team Providers Care Bevel Face Stoner And Polisher Name Role Phone Provider, None Primary Care Provider Unavailabl e Reason for Visit * Reason Comments Medication Refill Encounter Details Date Type Department Care Team (Late st Contact Info) Description 11/26/2021 Refill [facility] - Family Medicine [facility] [address] [place] [address] Bro Jaime MD [address] [place] [address] Medication Refill Social History Tobacco Use Types [...] Date Job End Date [employer] [place] Not on file Not on mateo e Not on file documented as of this encounter Plan of Treatment Not on file documented as of this encounter Visit Diagnoses Diagnosis Mild persistent asthma without complication Unspecified asthma documented in this encounter Additional Health Concerns Assessment Noted Time PHQ-9 Depression Total Score: 0 12/21/19 19 2:50 PM CDT documented as of this encounter Care Teams Bevel Face Stoner And Polisher Relationship Specialty Start Date End Date Provider, None [place] PCP - General 12/10/20 documented as of this encounter
--- OUTSIDE RECORDS SUMMARY | 2024-08-19 11:24 | XMS_ITS | Encounter Summary ---
Author Organization [facility] Address [address] [facility] [place] [address] Phone Care Team Providers Care Jewel Hole Rough Opener Name Role Phone Bro Jaime MD Primary Care Provider [phone] Provider, None Primary Care Provider Unavailabl e Reason for Visit * Reason Comments Medication Refill Encounter Details Date Type Department Care Team (Late st Contact Info) Description 04/22/2020 Refill [facility] [address] [place] [address] Bro Jaime MD [address] [place] [address] Medication Refill Social History Tobacco Use Types [...] Industry Job Start Date Job End Date [employer] [facility] [employer] [facility] [place] Not on file Not on mateo e Not on file documented as of this encounter Miscellaneous Notes * Telephone Encounter - Tyesha Richards RN - 04/24/2020 7:33 AM CST Medication failed the protocol, provider to review and approve the medication order if appropriate.Last OV 12/06/19. Requested Prescriptions Pending Prescriptions Disp Refills Phentermine HCl 37.5 MG Capsule [Pharmacy Med Name: PHENTERMINE 37.5 MG CAPSULE] 30 Cap 2 Sig: Take one capsule every morning before breakfast. Not Delegated - Gastroenterology: Antiobesity Agents Failed - 04/22/2020 11:26 PM Failed - This refill cannot be delegated Passed - Valid encounter within last 6 months Past Office Visits Recent Outpatient Visits 4 months ago Mass of forearm, left [facility] - Bro Jamison MD 1 year ago Bilateral temporomandibular joint pain [facility] - Bro Jamison MD 1 year ago Mass of forearm, left [facility] - Bro Jamison MD 1 year ago Well woman exam (no gynecological exam) [facility] - Bro Jamison MD Upcoming Appointments DRAINAGE INSPECTOR - Recent and Past Visits Recent Visits Date Type Provider Dept 12/06/19 Office Visit Bro Jaime MD [facility] 04/17/19 [facility] Show[facility] recent visits within past 460 days with a meds authorizing provider and meeting all other requirements Future Appointments No visits were found meeting these conditions. Showing future appointments within next 90 days with a meds authorizing provider and meeting all other requirements Passed - Last BP in normal range BP Readings from Last 1 Encounters: 12/06/19 124/80 BRIDGE OPERATOR documented in this encounter Plan of Treatment Not on file documented as of this encounter Visit Diagnoses Diagnosis Non morbid obesity due to excess calories documented in this encounter Additional Health Concerns Assessment Noted Time PHQ-9 Depression Total Score: 0 12/21/19 19 2:50 PM CDT documented as of this encounter Care Teams Jewel Hole Rough Opener Relationship Specialty Start Date End Date Bro Jaime MD PCP - General Family Medicine 07/30/18 09/21/20 Provider, None [place] PCP - General 12/10/20 documented as of this encounter
[2024-08-19 12:12] VITALS: BP 119/94; PULSE 110; RESP 18; O2SAT 100
[2024-08-19 12:12] LABS: BEDSIDEPREGUCG Negative (Negative)
[2024-08-19 12:18] LABS: Add Urine Microscopic? YES; Appearance Urine Turbid (Clear); Bacteria Urine 4+ /hpf; Bilirubin Urine Negative (Negative); Blood Urine Trace (Negative); Color Urine Yellow (Yellow); Glucose Urine UA Negative (Negative); Ketones Urine Negative (Negative); Leukocyte Esterase Ur 3+ LEU/UL (Negative); Nitrate Urine Negative (Negative); Protein Urine 1+ mg/dL (Negative); RBC Urine 0-2 /hpf (0-2); Specific Grav Ur 1.016 (1.001-1.035); Squamous Epithelial Cell Urine Occasional /hpf (Few); Urobilinogen Urine 0.2 mg/dL (<2.0); WBC Urine >100 /hpf (0-3); pH Urine 5.5 (5.0-9.0)
--- NOTE | 2024-08-19 12:34 | ED.GENADULT ---
HPI - General Adult General Chief complaint: Abdominal Pain Stated complaint: bilateral flank pain Time Seen by Provider: 08/19/24 12:02 History of Present Illness HPI narrative: 29-year-old female presenting to the emergency department for evaluation for flank pain has been ongoing for the last 2 days. Patient does have a prior history constipation but denies any prior history kidney stones. Patient states that she did have some increased body aches on Monday and Monday last week and then this progressed into flank pain over the past 2 days. Patient states she has had some issues with recent constipation and strong smelling urine. Patient states she does workup frequently and does [employer] but states she does drink enough water. Patient denies any other significant past medical history. Related Data Home Medications ?Medication ?Instructions ?Recorded ?Confirmed ?Last Taken ?Type albuterol sulfate 90 mcg/actuation 2 puff inhalation Q4-6H PRN 11/08/20 08/19/24 Unknown History aerosol inhaler Shortness Of Breath Or Wheezing levothyroxine 137 mcg tablet 137 mcg PO DAILY 11/08/20 08/19/24 Unknown History metformin 500 mg tablet,extended 500 mg PO DAILY 01/07/23 08/19/24 Unknown History release 24 hr phentermine 37.5 mg capsule 37.5 mg PO DAILY 01/07/23 08/19/24 Unknown History tirzepatide (weight loss) 5 mg/0.5 7.5 mg subcut DIRECTED 03/08/24 08/19/24 Unknown History mL subcutaneous pen injector (Zepbound) Allergies Allergy/AdvReac Type Severity Reaction Status Date / Time No Known Allergies Allergy Verified 08/19/24 14:20 Review of Systems Review of Systems: All systems reviewed & are unremarkable except as noted in HPI and below PMFSH Past Medical History Medical History Asthma Hypothyroidism 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 HEAD: normocephalic, atraumatic. EYES: PERRLA/EOMI, conjunctivae clear. NOSE: Normal no drainage EARS:TMS clear with good light reflex. THROAT: Pharynx clear, no exudate. NECK: Supple. No adenopathy, no masses. RESPIRATORY: Airway patent, respirations nonlabored. Clear to auscultation bilaterally, no rales, rhonchi, wheezing. CARDIOVASCULAR: Regular rate and rhythm without murmurs rubs or gallops. ABDOMINAL: Bilateral CVA tenderness to palpation MUSCULOSKELETAL: Moves all extremities. Strength/ROM intact, No edema, No calf tenderness. NEURO: Alert. Cranial nerves II through XII intact. Grossly intact SKIN: Warm, dry. Normal Color Course Vital Signs Vital signs: Vital Signs Temperature 98.1 F 08/19/24 10:07 Pulse Rate 118 H 08/19/24 10:07 Respiratory Rate 18 08/19/24 10:07 Blood Pressure 122/85 08/19/24 10:07 Pulse Oximetry 100 08/19/24 10:07 Oxygen Delivery Room Air 08/19/24 10:07 Temperature 98.1 F 08/19/24 10:07 Pulse Rate 110 H 08/19/24 12:12 Respiratory Rate 18 08/19/24 12:12 Blood Pressure 119/94 H 08/19/24 12:12 Pulse Oximetry 100 08/19/24 12:12 Oxygen Delivery Room Air 08/19/24 10:07 Medical Decision Making [facility] Narrative Medical decision making narrative: 29-year-old female presents emergency department for evaluation for bilateral flank pain. Patient was tachycardic on arrival was treated with a L of IV fluid and heart rate did improve. Patient was afebrile but does have a leukocytosis of 12.7 with a stable hemoglobin of 14.3. No significant abnormalities on the patient's CMP UA was turbid with positive leukocyte esterase, high white blood cells and +4 bacteria negative for red blood cells. This was consistent with a urinary tract infection. Patient was started on Rocephin in the emergency department. Patient was negative for influenza RSV and for COVID. 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 Patient will be discharged home with Keflex and Pyridium for symptom control. Patient was encouraged to take Tylenol and ibuprofen for body aches. Patient is also encouraged close follow-up with her primary care physician. Differential Diagnosis Differential Diagnosis: Rhabdomyolysis, UTI, kidney stone, lumbar strain Medical Records Medical records reviewed: Yes I reviewed the external patient's medical records. Vital Signs Vital Signs: Vital Signs Temperature 98.1 F 08/19/24 10:07 Pulse Rate 118 H 08/19/24 10:07 Respiratory Rate 18 08/19/24 10:07 Blood Pressure 122/85 08/19/24 10:07 Pulse Oximetry 100 08/19/24 10:07 Oxygen Delivery Room Air 08/19/24 10:07 Temperature 98.1 F 08/19/24 10:07 Pulse Rate 110 H 08/19/24 12:12 Respiratory Rate 18 08/19/24 12:12 Blood Pressure 119/94 H 08/19/24 12:12 Pulse Oximetry 100 08/19/24 12:12 Oxygen Delivery Room Air 08/19/24 10:07 Lab Data Lab results reviewed: Yes I reviewed the patient's lab results. 08/19/24 12:51 08/19/24 12:51 Labs: Lab Results 08/19/24 08/19/24 08/19/24 Range/Units 12:10 12:11 12:51 WBC 12.7 H (4.5-10.0) K/mm3 RBC 4.71 (4.2-5.4) M/mm3 Hgb 14.3 (12.0-15.0) g/dL Hct 43.5 (37.0-47.0) % MCV 92.4 (80-100) fl MCH 30.4 (26-34) pg MCHC 32.9 (32-36) g/dl RDW 13.5 (11.5-14.5) % Plt Count 225 (150-375) k/mm3 MPV 11.1 H (7.4-10.4) fl Immature Gran % (Auto) 0.6 H (0-0.5) % Neut % (Auto) 77.6 H (45.5-73.1) % Lymph % (Auto) 9.6 L (18.3-44.2) % [place] % (Auto) 11.3 H (2.6-8.5) % Eos % (Auto) 0.3 (0-4.4) % Baso % (Auto) 0.6 (0.2-1.2) % Lymph # (Auto) 1.22 (0.9-3.2) K/mm3 [place] # (Auto) 1.4 H (0.1-0.6) K/mm3 Eos # (Auto) 0.0 (0-0.3) K/mm3 Baso # (Auto) 0.1 (0.0-0.1) K/mm3 Abs Immat Gran (auto) 0.07 H (0.00-0.031) K/mm3 Absolute Neuts (auto) 9.9 H (1.3-6.7) K/mm3 Absolute Nucleated RBC 0.000 (0.0-0.012) K/mm3 Nucleated RBC % 0.0 (0.0-0.2) % Sodium 135 L (137-145) mmol/L Potassium 4.6 (3.4-5.0) mmol/L Chloride 100 (98-107) mmol/L Carbon Dioxide 26 (22-30) mmol/L Anion Gap 9 (4-12) mmol/L BUN 15 (7-17) mg/dL Creatinine 0.87 (0.7-1.0) mg/dL Estim Creat Clear Calc 98 ml/min Estimated GFR > 60 (59 - ) Glucose 92 (65-110) mg/dL Calcium 9.7 (8.4-10.2) mg/dL Total Bilirubin 1.1 (0.2-1.3) mg/dL AST 22 (14-36) U/L ALT 28 (6-35) U/L Alkaline Phosphatase 68 (38-126) U/L Total Creatine Kinase 33 (30-135) U/L Total Protein (6.3-8.2) g/dL Albumin (3.5-5.1) g/dL Urine Color Yellow (Yellow) Urine Appearance Turbid H (Clear) Urine pH 5.5 (5.0-9.0) Ur Specific [place] 1.016 (1.001-1.035) Urine Protein 1+ H (Negative) mg/dL Urine Glucose (UA) Negative (Negative) mg/dL Urine Ketones Negative (Negative) mg/dL Ur Blood (Man) Trace (Negative) Urine Nitrate Negative (Negative) Urine Bilirubin Negative (Negative) Urine Urobilinogen 0.2 (<2.0) mg/dL Leukocyte Esterase Rfl 3+ H (Negative) MAGALIS/UL Urine RBC 0-2 (0-2) /hpf Urine WBC >100 H (0-3) /hpf Ur Squamous Epith Cells Occasional (Few) /hpf Urine Bacteria 4+ H /hpf Urine Casts 3-5 POC Urine HCG, Qual Negative (Negative) Influenza A (RT-PCR) (Negative) Influenza B (RT-PCR) (Negative) RSV (RT-PCR) (Negative) SARS-CoV-2 RNA (RT-PCR) (Negative) 08/19/24 Range/Units 12:51 WBC (4.5-10.0) K/mm3 RBC (4.2-5.4) M/mm3 Hgb (12.0-15.0) g/dL Hct (37.0-47.0) % MCV (80-100) fl MCH (26-34) pg MCHC (32-36) g/dl RDW (11.5-14.5) % Plt Count (150-375) k/mm3 MPV (7.4-10.4) fl Immature Gran % (Auto) (0-0.5) % Neut % (Auto) (45.5-73.1) % Lymph % (Auto) (18.3-44.2) % [place] % (Auto) (2.6-8.5) % Eos % (Auto) (0-4.4) % Baso % (Auto) (0.2-1.2) % Lymph # (Auto) (0.9-3.2) K/mm3 [place] # (Auto) (0.1-0.6) K/mm3 Eos # (Auto) (0-0.3) K/mm3 Baso # (Auto) (0.0-0.1) K/mm3 Abs Immat Gran (auto) (0.00-0.031) K/mm3 Absolute Neuts (auto) (1.3-6.7) K/mm3 Absolute Nucleated RBC (0.0-0.012) K/mm3 Nucleated RBC % (0.0-0.2) % Sodium (137-145) mmol/L Potassium (3.4-5.0) mmol/L Chloride (98-107) mmol/L Carbon Dioxide (22-30) mmol/L Anion Gap (4-12) mmol/L BUN (7-17) mg/dL Creatinine (0.7-1.0) mg/dL Estim Creat Clear Calc ml/min Estimated GFR (59 - ) Glucose (65-110) mg/dL Calcium (8.4-10.2) mg/dL Total Bilirubin (0.2-1.3) mg/dL AST (14-36) U/L ALT (6-35) U/L Alkaline Phosphatase (38-126) U/L Total Creatine Kinase Cancelled (30-135) U/L Total Protein 9.0 H (6.3-8.2) g/dL Albumin 4.7 (3.5-5.1) g/dL Urine Color (Yellow) Urine Appearance (Clear) Urine pH (5.0-9.0) Ur Specific [place] (1.001-1.035) Urine Protein (Negative) mg/dL Urine Glucose (UA) (Negative) mg/dL Urine Ketones (Negative) mg/dL Ur Blood (Man) (Negative) Urine Nitrate (Negative) Urine Bilirubin (Negative) Urine Urobilinogen (<2.0) mg/dL Leukocyte Esterase Rfl (Negative) MAGALIS/UL Urine RBC (0-2) /hpf Urine WBC (0-3) /hpf Ur Squamous Epith Cells (Few) /hpf Urine Bacteria /hpf Urine Casts POC Urine HCG, Qual (Negative) Influenza A (RT-PCR) Negative (Negative) Influenza B (RT-PCR) Negative (Negative) RSV (RT-PCR) Negative (Negative) SARS-CoV-2 RNA (RT-PCR) Negative (Negative) Discharge Plan Discharge Clinical Impression: Pyelonephritis Patient Disposition: Home, Self-Care Condition: Stable Instructions: Antibiotic Form, Urinary Tract Infection in Women (DC) Additional Instructions: Antibiotic as directed until completed. Zofran as needed for nausea control. Pyridium as needed for urinary symptoms. Have close follow-up with your primary care physician. If you have any worsening symptoms then please call or return to the emergency department. Patient Language: Amharic Prescriptions: New phenazopyridine [Pyridium] 100 mg tablet 100 mg PO TID PRN (Reason: pain) Qty: 6 0RF cephalexin 500 mg capsule 500 mg PO Q8H 7 Days Qty: 21 0RF ondansetron 4 mg tablet,disintegrating 4 mg PO Q8H PRN (Reason: nausea and vomiting) Qty: 14 0RF No Action levothyroxine 137 mcg tablet 137 mcg PO DAILY albuterol sulfate 90 mcg/actuation HFA aerosol inhaler 2 puff INHALATION Q4-6H PRN (Reason: Shortness Of Breath Or Wheezing) metformin 500 mg tablet extended release 24 hr 500 mg PO DAILY phentermine 37.5 mg capsule 37.5 mg PO DAILY Zepbound 5 mg/0.5 mL pen injector 7.5 mg SUBCUT DIRECTED Follow-up/Referrals: PHYSICIAN,EXECUTIVE ADMIN [Non-Staff] -
[2024-08-19 12:58] LABS: Basophils Absolute Auto 0.1 K/mm3 (0.0-0.1); Basophils Percent Auto 0.6 % (0.2-1.2); Eosinophils Percent Auto 0.3 % (0-4.4); Hematocrit 43.5 % (37.0-47.0); Hemoglobin 14.3 g/dL (12.0-15.0); Immature Granulocyte Absolute 0.07 K/mm3 (0.00-0.031); Immature Granulocyte Percent A 0.6 % (0-0.5); Lymphocytes Absolute Auto 1.22 K/mm3 (0.9-3.2); Lymphocytes Percent Auto 9.6 % (18.3-44.2); Mean Corpuscular HGB Conc 32.9 g/dl (32-36); Mean Corpuscular Hemoglobin 30.4 pg (26-34); Mean Corpuscular Volume 92.4 fl (80-100); Mean Platelet Volume 11.1 fl (7.4-10.4); Monocytes Absolute Auto 1.4 K/mm3 (0.1-0.6); Monocytes Percent Auto 11.3 % (2.6-8.5); Neutrophils Absolute Auto 9.9 K/mm3 (1.3-6.7); Neutrophils Percent Auto 77.6 % (45.5-73.1); Platelet Count Result 225 k/mm3 (150-375); Red Blood Count 4.71 M/mm3 (4.2-5.4); Red Cell Distribution Width 13.5 % (11.5-14.5); White Blood Count 12.7 K/mm3 (4.5-10.0)
[2024-08-19] MEDS: SODIUM CHLORIDE 0.9% IV 1,000 ML 999 ML IV CONT (13:10)
[2024-08-19 13:18] LABS: Alanine Aminotransferase 28 U/L (6-35); Albumin Level 4.7 g/dL (3.5-5.1); Alkaline Phosphatase 68 U/L (38-126); Anion Gap 9 mmol/L (4-12); Aspartate Amino Transferase 22 U/L (14-36); Bilirubin,Total 1.1 mg/dL (0.2-1.3); Blood Urea Nitrogen 15 mg/dL (7-17); Calcium 9.7 mg/dL (8.4-10.2); Carbon Dioxide 26 mmol/L (22-30); Chloride 100 mmol/L (98-107); Creatine Kinase 33 U/L (30-135); Estimated CRCL calculation 98 ml/min; Estimated Glomerular Filt Rate > 60; Glucose 92 mg/dL (65-110); Potassium 4.6 mmol/L (3.4-5.0); Sodium 135 mmol/L (137-145)
[2024-08-19 13:39] LABS: Influenza A QL RT-PCR Negative (Negative); Influenza B QL RT-PCR Negative (Negative); RSV RNA, RT-PCR Negative (Negative); SARS-CoV-2 RNA PCR Negative (Negative)
--- OUTSIDE RECORDS SUMMARY | 2024-08-19 15:02 | XMS_ITS | Encounter Summary ---
Author Organization [facility] Address [address] [place] [address] Phone Care Team Providers Care Banking Services Advisor Name Role Phone Bro Jaime MD Primary Care Provider Provider, None Primary Care Provider Unavailabl e Reason for Visit * Reason Comments Medication Refill Encounter Details Date Type Department Care Team (Late st Contact Info) Description 04/22/2020 Refill [facility] [address] [place] [address] Bro Jaime MD [address] [place] [address] Medication Refill Social History Tobacco Use Types [...] Industry Job Start Date Job End Date [employer] [place] Not on file Not on mateo e [...] 4 months ago Mass of forearm, left [facility] - Bro Jamison MD 1 year ago Bilateral temporomandibular joint pain [facility] - Bro Jamison MD 1 year ago Mass of forearm, left [facility] - Bro Jamison MD 1 year ago Well woman exam (no gynecological exam) [facility] - Bro Jamison MD Upcoming Appointments IMMUNOLOGY SPECIALIST - Recent and Past Visits Recent Visits Date Type Provider Dept 12/06/19 Office Visit Bro Jaime MD [facility] 04/17/19 Office Visit [facility] Showing recent visits within past 460 days with a meds authorizing provider and meeting all other requirements Future Appointments No visits were found meeting these conditions. Showing future appointments within next 90 days with a meds authorizing provider and meeting all other requirements Passed - Last BP in normal range BP Readings from Last 1 Encounters: 12/06/19 124/80 MENTAL METAL FABRICATOR APPRENTICE documented in this encounter Plan of Treatment Not on file documented as of this encounter Visit Diagnoses Diagnosis Non morbid obesity due to excess calories documented in this encounter Additional Health Concerns Assessment Noted Time PHQ-9 Depression Total Score: 0 12/21/19 19 2:50 PM CDT documented as of this encounter Care Teams Banking Services Advisor Relationship Specialty Start Date End Date Bro Jaime MD PCP - General Family Medicine 07/30/18 09/21/20 Provider, None [place] PCP - General 12/10/20 documented as of this encounter
--- OUTSIDE RECORDS SUMMARY | 2024-08-19 15:02 | XMS_ITS | Encounter Summary ---
Author Organization [facility] Address [address] [place] [address] Phone Care Team Providers Care Nurse Aide Evaluator Name Role Phone Provider, None Primary Care Provider Unavailabl e Reason for Visit * Reason Comments Medication Refill Encounter Details Date Type Department Care Team (Late st Contact Info) Description 02/07/2021 Refill [facility] - [facility] [address] [place] [address] Bro Jaime MD [address] [place] [address] Medication Refill Social History Tobacco Use Types [...] Job Start Date Job End Date [employer] [place] Not on file Not on mateo e Not on file documented as of this encounter Plan of Treatment Not on file documented as of this encounter Visit Diagnoses Diagnosis Non morbid obesity due to excess calories documented in this encounter Additional Health Concerns Assessment Noted Time PHQ-9 Depression Total Score: 0 12/21/19 19 2:50 PM CDT documented as of this encounter Care Teams Nurse Aide Evaluator Relationship Specialty Start Date End Date Provider, None [place] PCP - General 12/10/20 documented as of this encounter
--- OUTSIDE RECORDS SUMMARY | 2024-08-19 15:02 | XMS_ITS | Encounter Summary ---
Author Organization [facility] Address [address] [place] [address] Phone Care Team Providers Care Slate Cutter Name Role Phone Provider, None Primary Care Provider Unavailabl e Reason for Visit * Reason Comments Medication Refill Encounter Details Date Type Department Care Team (Late st Contact Info) Description 04/15/2022 Refill [facility] - Family Medicine [facility] [address] [place] [address] Bro Jaime MD [address] [place] [address] Medication Refill Social History Tobacco Use Types [...] Job Start Date Job End Date [employer] [facility] [place] Not on file Not on mateo e Not on file documented as of this encounter Plan of Treatment Not on file documented as of this encounter Visit Diagnoses Diagnosis Mild persistent asthma without complication Unspecified asthma documented in this encounter Additional Health Concerns Assessment Noted Time PHQ-9 Depression Total Score: 0 12/21/19 19 2:50 PM CDT documented as of this encounter Care Teams Slate Cutter Relationship Specialty Start Date End Date Provider, None [place] PCP - General 12/10/20 documented as of this encounter
--- OUTSIDE RECORDS SUMMARY | 2024-08-19 15:02 | XMS_ITS | Encounter Summary ---
Author Organization [facility] Address [address] [place] [address] Phone Care Team Providers Care Porcelain Slusher Name Role Phone Provider, None Primary Care Provider Unavailabl e Reason for Visit * Reason Comments Medication Refill Encounter Details Date Type Department Care Team (Late st Contact Info) Description 11/26/2021 Refill [facility] - Family Medicine [facility] [address] [place] [address] Bro Jaime MD [address] [place] [address] Medication Refill Social History Tobacco Use Types [...] Start Date Job End Date [employer] [facility] [place] Not on file Not on mateo e Not on file documented as of this encounter Plan of Treatment Not on file documented as of this encounter Visit Diagnoses Diagnosis Mild persistent asthma without complication Unspecified asthma documented in this encounter Additional Health Concerns Assessment Noted Time PHQ-9 Depression Total Score: 0 12/21/19 19 2:50 PM CDT documented as of this encounter Care Teams Porcelain Slusher Relationship Specialty Start Date End Date Provider, None [place] PCP - General 12/10/20 documented as of this encounter
--- OUTSIDE RECORDS SUMMARY | 2024-08-19 15:02 | XMS_ITS | Clinical Summary ---
Author Organization [facility] Address [address] [place] [address] Care Team Providers Care Die Developer Name Role Phone No, Physician Primary Care Provider [phone] Allergies No known active allergies Medications norgestimate-ethin yl estradioL (Tri Femynor) 0.18/0.215/0.25 mg-35 mcg (28) per tabletIndications: PCOS (polycystic ovarian syndrome),Encounte r for surveillance of contraceptive pills Take 1 tablet by mouth daily 28 tablet 12 3 Active levothyroxine (SYNTHROID) 137 mcg tabletIndications: 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 Take 1 tablet (137 mcg total) by mouth early education teacher before breakfast 90 tablet 3 4 12/06/19 [...] (01/29/2021): Added automatically from request for surgery [id number] PCOS (polycystic ovarian syndrome) 01/08/2019 Assessment & Plan (12/06/2023 2:18 PM CDT): Counseled on diet and exercise Recommend to work on healthy weight loss Recommend to start taking oral metformin 1 tablet oral twice a day with meals Continue control pills Assessment & Plan (07/22/2022 10:49 AM GLUING CREW LEADER): Counseled on diet and exercise Recommend to [...] pills Assessment & Plan (06/17/2021 5:07 PM GLUING CREW LEADER): Patient with symptomatic PCOS, with irregular periods, [...] consider cross training - refer to see weed control inspector - refer to see ASSOCIATE PROFESSOR OF MUSIC - discuss local measures for Hirsutism - [...] taken. Assessment & Plan (04/04/2017 2:26 PM GLUING CREW LEADER): Advised to continue taking Levothyroxine 137 mcg [...] taken. Assessment & Plan (07/22/2022 10:49 AM GLUING CREW LEADER): Continue current dose of levothyroxine therapy Recheck thyroid function test and further plans based on it Assessment & Plan (06/17/2021 5:04 PM GLUING CREW LEADER): Patient has been off Levothyroxine for > [...] complication Assessment & Plan (07/22/2022 10:51 AM GLUING CREW LEADER): Refilled advair Advise to establish PCP Class 1 obesity due to exces s calories with serious comorbidity and body mass index (BMI) of 34.0 to 34.9 in adult 12/23/2016 Assessment & Plan (07/22/2022 10:51 AM GLUING CREW LEADER): Chronic, slowly improving but still above goal [...] start Phentermine 37.5 mg oral daily - weed control inspector referral - follow up in 3 months [...] discussed. Assessment & Plan (04/04/2017 2:28 PM GLUING CREW LEADER): Obesity is worsening. Discussed the patient's BMI. The BMI is above average; BMI management plan is completed. General weight loss/lifestyle modification strategies discussed (elicit support from others; identify saboteurs; non-food rewards, etc). Behavioral treatment: stress management. Diet interventions: moderate (500 kCal/d) deficit diet. Informal exercise measures discussed, e.g. taking stairs instead of elevator. Regular aerobic exercise program discussed. - advise to see weed control inspector soon - weed control inspector referral done - advise to do food diary for 2 weeks before seeing weed control inspector - advise to exercise 6 days of [...] Type Department Care Team Description 08/05/2024 Telephone [facility] [id number] [place] [phone] Seth Gar MD 07/08/2024 10:45 AM GLUING CREW LEADER Lab [facility] Outpatient Lab at [address] [address] 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 (Primary Dx) 07/08/2024 10:43 AM GLUING CREW LEADER - 07/08/2024 11:59 PM GLUING CREW LEADER Hospital Encounter [address] [address] 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 Discharge Disposition: Discharge to home or self care 07/08/2024 10:15 AM GLUING CREW LEADER Office Visit [facility] Diabetes and Endocrinology [address] [place] [phone] Seth Gar MD Class 1 obesity [...] adult (HCC) 06/05/2024 Telephone [facility] [id number] [place] [address] [address], [place] [address] Seth Gar MD from Last [...] Comments Blood Pressure 122/70 07/08/2024 10:24 AM GLUING CREW LEADER Pulse 96 07/08/2024 10:24 AM GLUING CREW LEADER Temperature 37.2 C (99 F) 04/02/2023 11:34 AM GLUING CREW LEADER Respiratory Rate 15 07/08/2024 10:24 AM GLUING CREW LEADER Oxygen Saturation 100% 04/02/2023 1:51 PM GLUING CREW LEADER Inhaled Oxygen Concentration - - Weight 97.1 kg (214 lb) 07/08/2024 10:24 AM GLUING CREW LEADER Height 167.6 cm (5' 6 ) 07/08/2024 10:24 AM GLUING CREW LEADER Body Mass Index 34.54 07/08/2024 10:24 AM GLUING CREW LEADER Plan of Treatment Health Maintenance Due Date [...] THYROID FUNCTION CASCADE Routine 07/08/2024 10:43 AM GLUING CREW LEADER 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 from Last 3 Months Results * Thyroid Function [place] (07/08/2024 10:43 AM GLUING CREW LEADER) TSH 0.46 0.30 - 4.20 mcIUnit/mL Blood 07/08/2024 10:4 3 AM GLUING CREW LEADER 07/08/2024 7:39 PM GLUING CREW LEADER Seth Godoy MD LAB BLOOD ORDERABLE S Final Result [facility] [id number] Department [place] [address] from Last 3 Months Insurance [facility] [place] Advance Directives For more information, please contact: [phone] * Full Code (Latest Code Status on File) Date Activated Date Inactivated Comments 01/29/2021 10:05 AM 01/29/2021 3:41 PM Care Teams Die Developer Relationship Specialty Start Date End Date No, Physician PCP - General 04/02/23
--- OUTSIDE RECORDS SUMMARY | 2024-08-19 15:02 | XMS_ITS | Encounter Summary ---
Author Organization [facility] Address [address] [place] [address] Phone Care Team Providers Care Economic Research Assistant Name Role Phone Provider, None Primary Care Provider Unavailabl e Reason for Visit * Reason Comments Medication Refill Encounter Details Date Type Department Care Team (Late st Contact Info) Description 06/02/2021 Refill [facility] - Family Medicine [facility] [address] [place] [address] Bro Jaime MD [address] [place] [address] Medication Refill Social History Tobacco Use Types [...] Date Job End Date juvenille assisted in [place] Not on file Not on mateo e Not on file documented as of this encounter Plan of Treatment Not on file documented as of this encounter Visit Diagnoses Diagnosis Non morbid obesity due to excess calories documented in this encounter Additional Health Concerns Assessment Noted Time PHQ-9 Depression Total Score: 0 12/21/19 19 2:50 PM CDT documented as of this encounter Care Teams Economic Research Assistant Relationship Specialty Start Date End Date Provider, None [place] PCP - General 12/10/20 documented as of this encounter
--- OUTSIDE RECORDS SUMMARY | 2024-08-19 15:02 | XMS_ITS | Encounter Summary ---
Author Organization [facility] Address [address] [place] [address] Phone Care Team Providers Care Materials Handler Name Role Phone Provider, None Primary Care Provider Unavailabl e Reason for Visit * Reason Comments Medication Refill Encounter Details Date Type Department Care Team (Late st Contact Info) Description 11/23/2020 Refill [facility] [address] [place] [address] Bro Jaime MD [address] [place] [address] Medication Refill Social History Tobacco Use Types [...] Job Start Date Job End Date [employer] in [place] Not on file Not on mateo e Not on file documented as of this encounter Plan of Treatment Not on file documented as of this encounter Visit Diagnoses Not on filedocumented in this encounter Additional Health Concerns Assessment Noted Time PHQ-9 Depression Total Score: 0 12/21/19 19 2:50 PM CDT documented as of this encounter Care Teams Materials Handler Relationship Specialty Start Date End Date Provider, None [place] PCP - General 12/10/20 documented as of this encounter
--- OUTSIDE RECORDS SUMMARY | 2024-08-19 15:02 | XMS_ITS | Encounter Summary ---
Author Organization [facility] Address [address] [facility] [place] [place] [address] Phone Care Team Providers Care Ice House Supervisor Name Role Phone Bro Jaime MD Primary Care Provider [phone] Provider, None Primary Care Provider Unavailabl e Reason for Visit * Reason Comments Medication Refill Encounter Details Date Type Department Care Team (Late st Contact Info) Description 04/02/2020 Refill [facility] [address] [place] [address] Bro Jaime MD [address] [place] [address] Medication Refill Social History Tobacco Use Types [...] Industry Job Start Date Job End Date [employer] [facility] [place] Not on file Not on mateo e Not on file documented as of this encounter Miscellaneous Notes * Telephone Encounter - Bro Jaime MD - 04/03/2020 4:45 PM CST I would love to dismiss her. TRACTOR OPERATOR * Telephone Encounter - Tyesha Richards RN - 04/03/2020 7:22 AM CST Patient has had 6 no shows just this year. Do you want to dismiss? TRACTOR OPERATOR * Telephone Encounter - Bro Jaime MD - 04/02/2020 6:31 PM CST Needs appointment before refills. Has no showed her last one. I said I want to see her in 3 months and she did not show up. She does this a lot and I m Not dealing with her. TRACTOR OPERATOR * Telephone Encounter - Jacque Shaw RN [...] 3 months ago Mass of forearm, left [facility] - Family [facility] Bro Jamison MD 11 months ago Bilateral temporomandibular joint pain [facility] Medical [facility] - Family [facility] - Bro Jamison MD 1 year ago Mass of forearm, left [facility] - Family Medicine - Bro Jamison MD 1 year ago Well woman exam (no gynecological exam) [facility] Medicine - Bro Jamison MD Upcoming Appointments BOILER FIREMAN - Recent and Past Visits Recent Visits Date Type Provider Dept 12/06/19 Office Visit Bro Jaime MD [facility] 04/17/19 Office Visit Bro Jaime MD [facility] Len Showing recent visits within past 460 days with a meds authorizing provider and meeting all other requirements Future Appointments No visits were found meeting these conditions. Showing future appointments within next 90 days with a meds authorizing provider and meeting all other requirements Passed - Last BP in normal range BP Readings from Last 1 Encounters: 12/06/19 124/80 TRACTOR OPERATOR documented in this encounter Plan of Treatment Not on file documented as of this encounter Visit Diagnoses Diagnosis Non morbid obesity due to excess calories documented in this encounter Additional Health Concerns Assessment Noted Time PHQ-9 Depression Total Score: 0 12/21/19 19 2:50 PM CDT documented as of this encounter Care Teams Ice House Supervisor Relationship Specialty Start Date End Date Bro Jaime MD PCP - General Family Medicine 07/30/18 09/21/20 Provider, None [place] PCP - General 12/10/20 documented as of this encounter
--- OUTSIDE RECORDS SUMMARY | 2024-08-19 15:02 | XMS_ITS | Referral Summary ---
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 Discharge Disposition: Discharge to home or self care 07/08/2024 10:45 AM FINANCIAL SERVICES SPECIALIST Lab [facility] Outpatient Lab at [address] [phone] 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 (Primary Dx) 07/08/2024 10:15 AM FINANCIAL SERVICES SPECIALIST Office Visit [facility] Diabetes and Endocrinology [address] [place] [phone] Seth Gar MD Class 1 obesity due to excess calories with serious comorbidity and body mass index (BMI) of 34.0 to 34.9 in adult (Primary Dx); PCOS (polycystic ovarian syndrome); 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; Class 3 severe obesity due to excess calories with serious comorbidity and body mass index (BMI) of 40.0 to 44.9 in adult (HCC) 06/05/2024 Telephone [facility] Specialists [address] [address] [place] Godoy, Seth Godoy MD [...] 1 tablet (137 mcg total) by mouth template checker before breakfast 90 tablet 3 4 12/06/19 [...] (01/29/2021): Added automatically from request for surgery [id number] PCOS (polycystic ovarian syndrome) 01/08/2019 Assessment & Plan (12/06/2023 2:18 PM CDT): Counseled on diet and exercise Recommend to work on healthy weight loss Recommend to start taking oral metformin 1 tablet oral twice a day with meals Continue control pills Assessment & Plan (07/22/2022 10:49 AM FINANCIAL SERVICES SPECIALIST): Counseled on diet and exercise Recommend to [...] pills Assessment & Plan (06/17/2021 5:07 PM FINANCIAL SERVICES SPECIALIST): Patient with symptomatic PCOS, with irregular periods, [...] consider cross training - refer to see typewriters functional tester - refer to see EXCHANGE UNDERWRITING CONSULTANT - discuss local measures for Hirsutism - [...] taken. Assessment & Plan (04/04/2017 2:26 PM FINANCIAL SERVICES SPECIALIST): Advised to continue taking Levothyroxine 137 mcg [...] taken. Assessment & Plan (07/22/2022 10:49 AM FINANCIAL SERVICES SPECIALIST): Continue current dose of levothyroxine therapy Recheck thyroid function test and further plans based on it Assessment & Plan (06/17/2021 5:04 PM FINANCIAL SERVICES SPECIALIST): Patient has been off Levothyroxine for > [...] complication Assessment & Plan (07/22/2022 10:51 AM FINANCIAL SERVICES SPECIALIST): Refilled advair Advise to establish PCP Class 1 obesity due to exces s calories with serious comorbidity and body mass index (BMI) of 34.0 to 34.9 in adult 12/23/2016 Assessment & Plan (07/22/2022 10:51 AM FINANCIAL SERVICES SPECIALIST): Chronic, slowly improving but still above goal [...] start Phentermine 37.5 mg oral daily - typewriters functional tester referral - follow up in 3 months [...] discussed. Assessment & Plan (04/04/2017 2:28 PM FINANCIAL SERVICES SPECIALIST): Obesity is worsening. Discussed the patient's BMI. The BMI is above average; BMI management plan is completed. General weight loss/lifestyle modification strategies discussed (elicit support from others; identify saboteurs; non-food rewards, etc). Behavioral treatment: stress management. Diet interventions: moderate (500 kCal/d) deficit diet. Informal exercise measures discussed, e.g. taking stairs instead of elevator. Regular aerobic exercise program discussed. - advise to see typewriters functional tester soon - typewriters functional tester referral done - advise to do food diary for 2 weeks before seeing typewriters functional tester - advise to exercise 6 days of [...] Comments Blood Pressure 122/70 07/08/2024 10:24 AM FINANCIAL SERVICES SPECIALIST Pulse 96 07/08/2024 10:24 AM FINANCIAL SERVICES SPECIALIST Temperature 37.2 C (99 F) 04/02/2023 11:34 AM FINANCIAL SERVICES SPECIALIST Respiratory Rate 15 07/08/2024 10:24 AM FINANCIAL SERVICES SPECIALIST Oxygen Saturation 100% 04/02/2023 1:51 PM FINANCIAL SERVICES SPECIALIST Inhaled Oxygen Concentration - - Weight 97.1 kg (214 lb) 07/08/2024 10:24 AM FINANCIAL SERVICES SPECIALIST Height 167.6 cm (5' 6 ) 07/08/2024 10:24 AM FINANCIAL SERVICES SPECIALIST Body Mass Index 34.54 07/08/2024 10:24 AM FINANCIAL SERVICES SPECIALIST Plan of Treatment Not on file Procedures Procedure Name Priority Date/Time Associated Diagnosis Comments THYROID FUNCTION CASCADE Routine 07/08/2024 10:43 AM FINANCIAL SERVICES SPECIALIST 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 from Last 3 Months Results * Thyroid Function [place] (07/08/2024 10:43 AM FINANCIAL SERVICES SPECIALIST) TSH 0.46 0.30 - 4.20 mcIUnit/mL Blood 07/08/2024 10:4 3 AM FINANCIAL SERVICES SPECIALIST 07/08/2024 7:39 PM FINANCIAL SERVICES SPECIALIST us Luísja Walt Godoy MD LAB BLOOD ORDERABLE S Final Result [facility] [id number] [address]ao [place] [address] from Last 3 Months Insurance [facility] Advance Directives For more information, please contact: [phone] * Full Code (Latest Code Status on File) Date Activated Date Inactivated Comments 01/29/2021 10:05 AM 01/29/2021 3:41 PM Care Teams Wood Machine Carver Relationship Specialty Start Date End Date No, Physician PCP - General 04/02/23
--- OUTSIDE RECORDS SUMMARY | 2024-08-19 15:02 | XMS_ITS | Encounter Summary ---
Author Organization [facility] Address [address] [place] [address] Phone Care Team Providers Care First Helper Name Role Phone Provider, None Primary Care Provider Unavailabl e Reason for Visit * Reason Comments Medication Refill Encounter Details Date Type Department Care Team (Late st Contact Info) Description 11/26/2021 Refill [facility] - Family Medicine [facility] [address] [place] [address] Bro Jaime MD [address] [place] [address] Medication Refill Social History Tobacco Use Types [...] Job Start Date Job End Date [employer] [place] Not on file Not on mateo e Not on file documented as of this encounter Plan of Treatment Not on file documented as of this encounter Visit Diagnoses Diagnosis Mild persistent asthma without complication Unspecified asthma documented in this encounter Additional Health Concerns Assessment Noted Time PHQ-9 Depression Total Score: 0 12/21/19 19 2:50 PM CDT documented as of this encounter Care Teams First Helper Relationship Specialty Start Date End Date Provider, None [place] PCP - General 12/10/20 documented as of this encounter
--- OUTSIDE RECORDS SUMMARY | 2024-08-19 15:02 | XMS_ITS | Clinical Summary ---
Author Organization [facility] Address [address] [place] [address] Phone Care Team Providers Care Fire Equipment Inspector Name Role Phone Provider, None Primary [...] consider cross training - refer to see hair preparer - refer to see PLANNING AIDE - discuss local measures for Hirsutism - [...] Job Start Date Job End Date [employer] intermediate in [place] Not on file Not on mateo e [...] patient's age to complete this topic Insurance [facility] OAP Care Teams Fire Equipment Inspector Relationship Specialty Start Date End Date Provider, None [place] PCP - General 12/10/20
--- OUTSIDE RECORDS SUMMARY | 2024-08-19 15:02 | XMS_ITS | Encounter Summary ---
Author Organization [facility] Address [address] [facility] [place] [address] Phone Care Team Providers Care Wire Stripping Machine Operator Name Role Phone Bro Jaime MD Primary Care Provider [phone] Provider, None Primary Care Provider Unavailabl e Reason for Visit * Reason Comments Medication Refill Encounter Details Date Type Department Care Team (Late st Contact Info) Description 08/30/2020 Refill [facility] Family Medicine [facility] [address] [place] [address] Bro Jaime MD [address] [place] [address] Medication Refill Social History Tobacco Use Types [...] Date Job End Date [employer] in [place] Not on file Not on mateo e Not on file COVID-19 Exposure Response Date Recorded In the last month, have you been in contact with someone who was confirmed or suspected to have Coronavirus / COVID-19? No / Unsure 08/05/2020 11:02 AM PHYSICAL THERAPY PROFESSOR documented as of this encounter Miscellaneous Notes [...] 8 months ago [facility] Bilateral temporomandibular joint pain [facility] Bro Jamison MD 1 year ago [facility], [facility] 2 years ago Well woman exam (no gynecological exam) [facility] Upcoming Appointments Future Appointments In 2 months Bro Jaime MD [facility] MACHINE PASTER - Recent and Past Visits Recent Visits Date Type Provider Dept 05/08/20 Office Visit Bro Jaime MD [facility] 12/06/19 [facility] Showing recent visits within past 460 [...] documented as of this encounter Care Teams Wire Stripping Machine Operator Relationship Specialty Start Date End Date Bro Jaime MD PCP - General Family Medicine 07/30/18 09/21/20 Provider, None [place] PCP - General 12/10/20 documented as of this encounter
--- OUTSIDE RECORDS SUMMARY | 2024-08-19 15:02 | XMS_ITS | Encounter Summary ---
Author Organization [facility] Address [address] [facility] [place] [address] Phone Care Team Providers Care Fan Engine Engineer Name Role Phone Bro Jaime MD Primary Care Provider [phone] Provider, None Primary Care Provider Unavailabl e Reason for Visit * Reason Comments Medication Refill Encounter Details Date Type Department Care Team (Late st Contact Info) Description 09/13/2020 Refill [facility] [address] [place] [address] Bro Jaime MD [address] [place] [address] Medication Refill Social History Tobacco Use Types [...] Date Job End Date [employer] in [place] Not on file Not on [...] documented as of this encounter Care Teams Fan Engine Engineer Relationship Specialty Start Date End Date Bro Jaime MD PCP - General Family Medicine 07/30/18 09/21/20 Provider, None [place] PCP - General 12/10/20 documented as of this encounter
--- OUTSIDE RECORDS SUMMARY | 2024-08-19 15:02 | XMS_ITS | Encounter Summary ---
Author Organization [facility] Address [address] [place] [address] Phone Care Team Providers Care Institutional Cook Name Role Phone Provider, None Primary Care Provider Unavailabl e Reason for Visit * Reason Comments Medication Refill Encounter Details Date Type Department Care Team (Late st Contact Info) Description 06/21/2021 Refill [facility] - Family Medicine [facility] [address] [place] [address] Bro Jaime MD [address] [place] [address] Medication Refill Social History Tobacco Use Types [...] Job Start Date Job End Date [employer] [place] Not on file Not on mateo e Not on file documented as of this encounter Plan of Treatment Not on file documented as of this encounter Visit Diagnoses Diagnosis Mild persistent asthma without complication Unspecified asthma documented in this encounter Additional Health Concerns Assessment Noted Time PHQ-9 Depression Total Score: 0 12/21/19 19 2:50 PM CDT documented as of this encounter Care Teams Institutional Cook Relationship Specialty Start Date End Date Provider, None [place] PCP - General 12/10/20 documented as of this encounter
--- OUTSIDE RECORDS SUMMARY | 2024-08-19 15:02 | XMS_ITS | Encounter Summary ---
Author Organization [facility] Address [address] [facility] [place] [address] Phone Care Team Providers Care Eligibility Services Representative Name Role Phone Bro Jaime MD Primary Care Provider [phone] Provider, None Primary Care Provider Unavailabl e Reason for Visit * Reason Comments Medication Refill Encounter Details Date Type Department Care Team (Late st Contact Info) Description 03/07/2020 Refill [facility] Family [facility] [address] [place] [address] Bro Jaime MD [address] [place] [address] Medication Refill Social History Tobacco Use Types [...] Industry Job Start Date Job End Date [facility] [place] Not on file Not on mateo e [...] documented as of this encounter Care Teams Eligibility Services Representative Relationship Specialty Start Date End Date Bro Jaime MD PCP - General Family Medicine 07/30/18 09/21/20 Provider, None [place] PCP - General 12/10/20 documented as of this encounter
== END 2024-08-19 14:55 | disposition home or self-care (01) ==
PROVIDERS: Emergency Provider Emergency Medicine
DX: N12 Tubulo-interstitial nephritis, not specified as acute or chronic (principal); Z20.822 Contact with and (suspected) exposure to COVID-19; J45.909 Unspecified asthma, uncomplicated; E03.9 Hypothyroidism, unspecified; E28.2 Polycystic ovarian syndrome
CPT/HCPCS: 36415; 80053; 81001; 81025; 82550; 85025; 87077; 87086; 87186; 87637; 96361; 96365; 99284; J0696; J7030